=== PATIENT | female | born 1970 | race African-American/Black ===

== ENCOUNTER → 2018-06-02 | Outpatient (CLI) | payer MEDICARE, BC ==
[~2018-06-02] MED LIST: IOHEXOL 240 MG/ML 50ML VIAL. PO ONE
--- NOTE | 2018-06-02 14:02 | RAD ---
Examination: CT of the abdomen pelvis with oral contrast HISTORY: History of ventral hernia COMPARISON: None available TECHNIQUE: Axial CT images of the abdomen pelvis were performed with oral contrast. Coronal and sagittal reformats are performed Exposure: One or more of the following individualized dose reduction techniques were utilized for this examination: 1. Automated exposure control 2. Adjustment of the mA and/or kV according to patient size 3. Use of iterative reconstruction technique FINDINGS: Granulomas identified in the right lung base. No evidence of free air identified in the abdomen. The evaluation of the solid organs is limited due to lack of IV contrast. Cystic structure identified in the right lobe of the liver measuring 2 cm, difficult to characterize without contrast probably a cyst. Few calcified granulomas identified in the liver and spleen. Small subcentimeter cystic structures identified in the liver. The adrenal glands grossly appears unremarkable. The gallbladder is mildly distended. Small hiatal hernia. Prior surgical changes identified in the region of the stomach. The pancreas is mildly distended. The small bowel is nondilated. There is herniation of the small bowel loops in the right mid abdomen into the abdominal musculature however the external oblique muscle is intact. No evidence of bowel obstruction Atrophic changes of the [place] kidneys. Multiple cystic structures identified in the bilateral [place] kidneys likely cysts. There is a transplanted kidney identified in the left pelvic region. The appendix is normal. Feces and gas noted in the colon. Urinary bladder is mildly distended. Mild degenerative changes lumbar spine. IMPRESSION: 1. Mild herniation of the small bowel loops in the abdominal musculature in the right midabdomen however the external oblique muscle appears intact. No bowel obstruction. 2. Bilateral renal cysts with atrophic appearing [place] kidneys. Transplanted kidney identified in the left pelvic region 3. Cystic structures identified in the liver difficult to characterize probably cysts. Electronically signed by: Chele Quijano MD (06/02/2018 1:58 PM) [id number]
== END | disposition home or self-care (01) ==
LOC: CT 10:17
PROVIDERS: ATTEND Specialist
DX: K44.9 Diaphragmatic hernia without obstruction or gangrene (principal); K45.8 Other specified abdominal hernia without obstruction or gangrene; N28.1 Cyst of kidney, acquired; J84.10 Pulmonary fibrosis, unspecified; K82.8 Other specified diseases of gallbladder; N32.89 Other specified disorders of bladder; M47.896 Other spondylosis, lumbar region; Z94.0 Kidney transplant status
CPT/HCPCS: 74176

== ENCOUNTER 2018-09-01 08:24 | Inpatient (IN) | payer MEDICARE, BC ==
--- NOTE | 2018-08-31 11:48 | HP ---
ADMIT DATE: 09/01/2018 HISTORY OF PRESENT ILLNESS: The patient has had multiple surgeries as she is on dialysis, has had 2 surgeries, one of which she thinks may be related to the mass that she has in her abdomen at this point. She has this mass, which is painful and has been giving her trouble now for many months and she comes to me for treatment of the same. As stated before, she is on dialysis, has had a long history of renal failure. PAST MEDICAL HISTORY: Includes end-stage renal disease and she has had 2 kidney transplants, the left one is now, the right one in was taken out. Now she has one there that is functioning. Her creatinine stays around 2 or so. The other surgeries that she has had include a hysterectomy which she thinks was done vaginally. She has also had a gastric bypass surgery for obesity and has obviously had peritoneal dialysis catheters x 2 and has had an infection from that and has a shunt in the left arm. She otherwise has had normal childhood diseases. I think she is treated for hypertension, but does not have diabetes and is taking injection medicine now. She also is on 5 mg of prednisone by mouth per day. ALLERGIES: The patient has an allergy to PENICILLIN, but otherwise no other allergies. SOCIAL HISTORY: The patient has no children. Does not smoke, drink or use illicit drugs. FAMILY HISTORY: Noncontributory to the present illnesses. REVIEW OF SYSTEMS: Basically negative except for this periodic pain in the right abdomen where she feels a mass at times. It does go away sometimes when she lies down, but otherwise causes pain and discomfort. PHYSICAL EXAMINATION: GENERAL: Shows a slightly obese female in no acute distress. HEAD, EYES, EARS, NOSE AND THROAT: Grossly normal. CHEST: Clear bilaterally to auscultation. HEART: Unremarkable with a rate of 75 beats per minute, estimated and regular, but she did have about a 3/6 systolic murmur heard at the mitral area. ABDOMEN: Showed the scars of previous surgery and did have a mass when she stood up or increased intra-abdominal pressure mostly in the right abdomen at the umbilicus. It was fairly large. PELVIC: Not done. EXTREMITIES: Grossly normal. She did have the scars of previous surgery. IMPRESSION: 1. Ventral hernia. 2. End-stage renal disease. MEENAKSHI RANDALL MD DR: Maegan JOB#: [id number] / [id number] DOMO
[2018-09-01] VITALS (10 sets, daily range): BP systolic 118–164; BP diastolic 70–91
[~2018-09-01] VITALS: Ht 171.4 cm; Wt 86.2 kg
[~2018-09-01 08:24] MED LIST changes: +ALLO100T PO; +ASPI-630 PO; +CALC0.25 PO; +CALC300T5 PO; +CHOL500016 PO; +CLINDAMYCIN 900MG PREMIX 50 ML IV PRN; +DEXAMETHASONE SOD PHOS 20 MG/5 ML VIAL. ONE; +DIPH25CA58 PO; +FAMO20TA5 PO; +FAMOTIDINE 20 MG/2 ML VIAL ONE; +FURO80TA3 PO; +GABA300C18 PO; +HYDROmorphone 2 MG/ML VIAL IV PRN; -IOHEXOL 240 MG/ML 50ML VIAL. PO ONE; +IV RINGERS,LACTATED 1000ML 1,000 ML IV SCH; +LABE100T5 PO; +LEVO200T5 PO; +LIDOCAINE 1% PF 2 ML VIAL. ID PRN; +LIDOCAINE 1% PF 5 ML VIAL. ONE; +MELA3TAB2 PO; +MIDAZOLAM HCL/PF 2 MG/2 ML VIAL. ONE; +MORPHINE SULFATE 2 MG/ML VIAL. IV PRN; +MYCO180T PO; +ONDANSETRON PF 4 MG/2 ML VIAL. IV PRN; +PRED2.5T PO; +PROCHLORPERAZINE 10 MG/2 ML VIAL. IV PRN; +PROPOFOL 20 ML IV ONE; +ROCURONIUM 50 MG/5 ML VIAL. ONE; +TACR1CAP4 PO; +TERA2CAP3 PO; +TRAM50TA PO; +fentaNYL PF VIAL 250 MCG/5 ML VIAL ONE
--- NOTE | 2018-09-01 08:43 | PDOC ---
SURGICAL PROGRESS NOTE Subjective Pre operative note: No change in dictated H&P. MEENAKSHI RANDALL MD Sep 01, 2018 08:43
--- NOTE | 2018-09-01 08:43 | PDOC ---
SURGICAL PROGRESS NOTE Subjective Operative Note: Surgeon.................Hernandez Pre op dx...............ventral hernia post op dx..............ventral hernia anesthesia..............general Proceedure.............repair ventral hernia with mesh with lateral fasciotomies blood loss...............50cc drains.....................Large New drains x2 under the external oblique muscle fluids......................see anesthesia note condition................satisfactory MEENAKSHI RANDALL MD Sep 01, 2018 08:43
[2018-09-01] MEDS ORDERED: BUPIVAC MPF-EPI 0.5%-1:200000 30 ML VIAL. ONE (08:52)
[2018-09-01] MEDS ORDERED: PERICOLACE PO (08:56)
[2018-09-01] MEDS ORDERED: MIDAZOLAM HCL/PF 2 MG/2 ML VIAL. ONE (09:36)
[2018-09-01] MEDS ORDERED: ROPIVacaine 0.5% PF 20 ML VIAL. ONE (09:36)
[2018-09-01 10:02] LABS: BASO % 1 % (0-3); EOS # 0.2 x10^3/uL (0.0-0.7); EOS % 4 % (0-3); HEMATOCRIT 30.7 % (36.0-47.0); HEMOGLOBIN 9.4 g/dL (12.0-15.5); LYMPH # 1.1 x10^3/uL (1.0-4.8); LYMPH % 27 % (24-48); MEAN CORPUSCULAR HEMOGLOBIN 25 pg (25-35); MEAN CORPUSCULAR HGB CONC 31 g/dL (31-37); MEAN CORPUSCULAR VOLUME 82 fL (79-100); MONO # 0.3 x10^3/uL (0.0-1.1); MONO % 7 % (0-9); NEUT # 2.6 x10^3uL (1.8-7.7); NEUT % 62 % (31-73); PLATELET COUNT 205 x10^3/uL (140-400); RED BLOOD COUNT 3.75 x10^6/uL (3.50-5.40); RED CELL DISTRIBUTION WIDTH 18.2 % (11.5-14.5); WHITE BLOOD COUNT 4.1 x10^3/uL (4.0-11.0)
[2018-09-01 10:10] LABS: PROTHROMBIN TIME PATIENT 13.7 SEC (11.7-14.0)
[2018-09-01 10:12] LABS: CALCIUM 9.2 mg/dL (8.5-10.1); CREATININE 1.8 mg/dL (0.6-1.0); POTASSIUM 3.4 mmol/L (3.5-5.1)
[2018-09-01 10:18] LABS: ALBUMIN 3.7 g/dL (3.4-5.0); ALBUMIN/GLOBULIN RATIO 1.4 (1.0-1.7); TOTAL BILIRUBIN 0.5 mg/dL (0.2-1.0); TOTAL PROTEIN 6.3 g/dL (6.4-8.2)
[2018-09-01] MEDS: NORMAL SALINE 35 ML, fentaNYL PF VIAL 250 MCG, ROPIVacaine 0.5% PF 10 ML in EPIDURAL 50 TV EPID PRN ×3 (11:45→19:53)
[2018-09-01] MEDS ORDERED: ONDANSETRON PF 4 MG/2 ML VIAL. ONE (12:12)
[2018-09-01] MEDS ORDERED: NEOSTIGMINE 10 MG/10 ML VIAL. ONE (12:13)
[2018-09-01] MEDS ORDERED: GLYCOPYRROLATE 1 MG/5 ML VIAL. ONE (12:13)
[2018-09-01] MEDS ORDERED: ROCURONIUM 50 MG/5 ML VIAL. ONE (12:30)
[2018-09-01] MEDS ORDERED: CLINDAMYCIN 900MG PREMIX 50 ML IV ONE (12:30)
[2018-09-01] MEDS: IV 1/2 NORMAL SALINE 1,000 ML IV SCH ×2 (14:07→23:17)
[2018-09-01] MEDS ORDERED: ONDANSETRON PF 4 MG/2 ML VIAL. IV PRN (14:15)
[2018-09-01] MEDS ORDERED: 0.9 % SODIUM CHLORIDE 10 ML DISP.SYRIN. IV PRN (14:15)
[2018-09-01 15:01] LABS: CALCIUM 8.7 mg/dL (8.5-10.1); CREATININE 1.7 mg/dL (0.6-1.0); GFR 38.5; POTASSIUM 3.7 mmol/L (3.5-5.1)
[2018-09-01 15:06] LABS: ALBUMIN 3.4 g/dL (3.4-5.0); ALBUMIN/GLOBULIN RATIO 1.2 (1.0-1.7); TOTAL BILIRUBIN 0.4 mg/dL (0.2-1.0); TOTAL PROTEIN 6.2 g/dL (6.4-8.2)
--- NOTE | 2018-09-01 15:15 | NUR ---
Pt admitted from PACU via bed. A&O x3 very drowsy, c/o pain 06/24. IVF infusing. Abdominal dressing is CDI with binder in place. MILAGRO X2 on lower abd small amount of sanguineous drainage in both. NG connected to dependent drainage. Farah cath draining clear, yellow urine. Epidural infusing @ 12mL/hr. Completed admission assessment. Family at bedside. Call light within reach. Will continue to monitor.
[2018-09-01] MEDS: MYCOPHENOLATE ACID 180 MG TABLET.DR. PO SCH (21:24)
[2018-09-01] MEDS: TACROLIMUS 0.5 MG CAPSULE PO SCH (21:25)
[2018-09-01] MEDS: FAMOTIDINE 20 MG/2 ML VIAL IVP SCH (21:25)
--- NOTE | 2018-09-01 23:02 | OP ---
DATE OF SURGERY: SURGEON: Martín Randall MD PREOPERATIVE DIAGNOSIS: Large right abdominal ventral hernia. POSTOPERATIVE DIAGNOSIS: Large right abdominal ventral hernia. ANESTHESIA: General. PROCEDURE: Repair of right ventral hernia with mesh and lateral release of right external oblique muscle. TECHNIQUE: Under general anesthesia, the patient was properly prepped and draped in a routine fashion. She had been quite obese and had this mass in the right abdomen. It was midabdomen where the hernia was and it was unusual in that it did not really have a sac, but it was a protrusion through the muscles and only the external oblique aponeurosis was what was holding it in. She had had two kidney transplants and one kidney had been put in and removed on the right side. The technique was that under general anesthesia, the patient was properly prepped and draped in routine fashion. An incision was made in the right abdomen almost like a right paramedian incision. We had marked where the hernia was at that point and that done just prior to surgery. I went through the skin and pretty gingerly went into the subcutaneous making certain that we would enter the sac. It was as we thought beneath the external oblique aponeurosis muscle. As such, we divided it very gingerly and the peritoneum beneath that and got into the abdominal cavity. There was only fascia that was medial to this area and the lateral fascia had gone, it was very difficult to tell but it had gone quite far laterally and the hernia was only encapsulated by this external oblique aponeurosis muscle. It extended about 12 cm down and about 6 or 7 cm wide. We defined the area, divided some of the adhesions in the abdomen, which were relatively minimal having had the surgery that she has had before and made certain that during the procedure we did not injure any intra-abdominal contents. We were able to then define the margins of the hernia and as such made an incision going from the external oblique aponeurosis inferiorly and about a centimeter more to the medial side of the external oblique aponeurosis were it attached to the lateral muscles and just divided this so there would not be so much tension. We then used #1 suture to approximate the fascia medially that we could define clearly and laterally, which was quite far laterally, but with relaxation we were able to approximate this without much tension at all. We slowly did this in interrupted fashion so that we completely obliterated the hernia and approximated the muscles and fascia beneath the external oblique muscle. Having done this making certain not to injure any intra-abdominal contents, we placed the sutures. We then tied them as we placed Seprafilm in the abdomen, so that there would be less adhesions. Having done this, we then tied the suture as the Seprafilm laid flat on the contents of the abdomen and beneath the incision. We tied these with #1 Prolene suture and then divided. She had epidurally and we did not inject this with Marcaine. We then approximated the external oblique muscle and fibers taking the fascia with interrupted 0 Prolene suture. This was cut also. We then cleared off the anterior abdominal wall where the muscle was and going about 6 cm past the incision, we placed Phasix over this and sutured it in place using 2-0 Prolene. This laid flat on the anterior abdominal wall under the subcutaneous and on top of the muscle in the incision that we had made in the external oblique muscle. This was placed. We then placed two large New drains and then sutured the catheters in place using 2-0 silk. We then inspected the wound. We irrigated with copious amounts of saline and approximated in layers using 3-0 and 4-0 Vicryl the subcutaneous tissues. The skin was closed using a skin stapler. We then applied the appropriate apparatus to the drains with the bulbs in place and tied them with 0 silk sutures so that it cannot be removed. The bulbs were in place and the procedure was basically terminated as a sterile dressing was applied. The blood loss was probably not more than 25 to 30 mL. Fluids given can be obtained from the anesthesia sheet. The drains were the two large New drains and the condition of the patient was satisfactory as she is returned to the recovery room. MARTÍN RANDALL MD DR: MILO/margarita JOB#: [id number] / [id number] DOMO
--- NOTE | 2018-09-01 23:06 | NUR ---
1929 Patient comfortable in bed, requesting her anti-rejection medicines tonight, Dr Ng contacted and okayed to take with sip of water , pt informed. patient able tolerate taking 2 prograf caps only. at 0 pt complained of decrease sensation to right lower extremity, pt able to move all extremitues but stated her right leg feels different, ASTRO TECHNICIAN lead generation representative informed and came and assessed pt, no changes made in her epidural settings, will continue to monitor.
[2018-09-01] MEDS: CLINDAMYCIN 600MG PREMIX 50 ML IV SCH (23:15)
[2018-09-02] MEDS: NORMAL SALINE 35 ML, fentaNYL PF VIAL 250 MCG, ROPIVacaine 0.5% PF 10 ML in EPIDURAL 50 TV EPID PRN ×6 (00:03→20:30)
[2018-09-02 03:00] VITALS: BP 180/82
[2018-09-02 04:06] LABS: ALBUMIN 3.4 g/dL (3.4-5.0); ALBUMIN/GLOBULIN RATIO 1.4 (1.0-1.7); CALCIUM 8.6 mg/dL (8.5-10.1); CREATININE 1.7 mg/dL (0.6-1.0); GFR 38.5; POTASSIUM 4.2 mmol/L (3.5-5.1); TOTAL BILIRUBIN 0.5 mg/dL (0.2-1.0); TOTAL PROTEIN 5.8 g/dL (6.4-8.2)
[2018-09-02 05:10] LABS: BASO # 0.1 x10^3/uL (0.0-0.2); BASO % 1 % (0-3); EOS % 0 % (0-3); HEMATOCRIT 27.9 % (36.0-47.0); HEMOGLOBIN 8.7 g/dL (12.0-15.5); LYMPH # 1.2 x10^3/uL (1.0-4.8); LYMPH % 11 % (24-48); MEAN CORPUSCULAR HEMOGLOBIN 26 pg (25-35); MEAN CORPUSCULAR HGB CONC 31 g/dL (31-37); MEAN CORPUSCULAR VOLUME 81 fL (79-100); MONO # 0.6 x10^3/uL (0.0-1.1); MONO % 6 % (0-9); NEUT # 8.6 x10^3uL (1.8-7.7); NEUT % 83 % (31-73); PLATELET COUNT 189 x10^3/uL (140-400); RED BLOOD COUNT 3.43 x10^6/uL (3.50-5.40); RED CELL DISTRIBUTION WIDTH 18.3 % (11.5-14.5); WHITE BLOOD COUNT 10.4 x10^3/uL (4.0-11.0)
[2018-09-02] MEDS: CLINDAMYCIN 600MG PREMIX 50 ML IV SCH ×3 (06:01→21:39)
[2018-09-02 07:00] VITALS: BP 196/82
--- NOTE | 2018-09-02 07:36 | PDOC ---
SURGICAL PROGRESS NOTE Subjective POD#1 Alert and doing well with little pain. Will get out of bed and ambulate today. Will remove MG and parikh. Lab noted and creatinine stable at 1.7. Will continue to support and await Gi function...likely 2-3 days. WIll defer Meds to Dr. Navas and see if he feels nephrology should see patient. Binder made loose and will leave drains in likely for 7-10 days. Vital Signs Vital Signs Date Time Temp Pulse Resp B/P (MAP) Pulse Ox O2 Delivery O2 Flow Rate FiO2 09/02/18 04:20 20 97 Nasal Cannula 2.0 09/02/18 03:00 97.9 81 180/82 (114) 97.9 I&O Intake and Output 09/02/18 07:00 Intake Total 1200 ml Output Total 800 ml Balance 400 ml Intake Oral 0 ml IV Total 1200 ml Output Urine Total 585 ml Drainage Total 115 ml Estimated Blood Loss 100 ml Labs Laboratory Tests Test 09/01/18 09:00 09/01/18 14:45 09/02/18 03:15 09/02/18 05:00 White Blood Count 4.1 x10^3/uL (4.0-11.0) 10.4 x10^3/uL (4.0-11.0) Red Blood Count 3.75 x10^6/uL (3.50-5.40) 3.43 x10^6/uL (3.50-5.40) Hemoglobin 9.4 g/dL (12.0-15.5) 8.7 g/dL (12.0-15.5) Hematocrit 30.7 % (36.0-47.0) 27.9 % (36.0-47.0) Mean Corpuscular Volume 82 fL (79-100) 81 fL (79-100) Mean Corpuscular Hemoglobin 25 pg (25-35) 26 pg (25-35) Mean Corpuscular Hemoglobin Concent 31 g/dL (31-37) 31 g/dL (31-37) Red Cell Distribution Width 18.2 % (11.5-14.5) 18.3 % (11.5-14.5) Platelet Count 205 x10^3/uL (140-400) 189 x10^3/uL (140-400) Neutrophils (%) (Auto) 62 % (31-73) 83 % (31-73) Lymphocytes (%) (Auto) 27 % (24-48) 11 % (24-48) Monocytes (%) (Auto) 7 % (0-9) 6 % (0-9) Eosinophils (%) (Auto) 4 % (0-3) 0 % (0-3) Basophils (%) (Auto) 1 % (0-3) 1 % (0-3) Neutrophils # (Auto) 2.6 x10^3uL (1.8-7.7) 8.6 x10^3uL (1.8-7.7) Lymphocytes # (Auto) 1.1 x10^3/uL (1.0-4.8) 1.2 x10^3/uL (1.0-4.8) Monocytes # (Auto) 0.3 x10^3/uL (0.0-1.1) 0.6 x10^3/uL (0.0-1.1) Eosinophils # (Auto) 0.2 x10^3/uL (0.0-0.7) 0.0 x10^3/uL (0.0-0.7) Basophils # (Auto) 0.0 x10^3/uL (0.0-0.2) 0.1 x10^3/uL (0.0-0.2) Prothrombin Time 13.7 SEC (11.7-14.0) Prothromb Time International Ratio 1.1 (0.8-1.1) Sodium Level 146 mmol/L (136-145) 144 mmol/L (136-145) 142 mmol/L (136-145) Potassium Level 3.4 mmol/L (3.5-5.1) 3.7 mmol/L (3.5-5.1) 4.2 mmol/L (3.5-5.1) Chloride Level 107 mmol/L (98-107) 107 mmol/L (98-107) 106 mmol/L (98-107) Carbon Dioxide Level 26 mmol/L (21-32) 27 mmol/L (21-32) 22 mmol/L (21-32) Anion Gap 13 (6-14) 10 (6-14) 14 (6-14) Blood Urea Nitrogen 16 mg/dL (7-20) 14 mg/dL (7-20) 15 mg/dL (7-20) Creatinine 1.8 mg/dL (0.6-1.0) 1.7 mg/dL (0.6-1.0) 1.7 mg/dL (0.6-1.0) Estimated GFR (Cockcroft-Gault) 36.0 38.5 38.5 BUN/Creatinine Ratio 9 (6-20) 8 (6-20) 9 (6-20) Glucose Level 88 mg/dL (70-99) 117 mg/dL (70-99) 93 mg/dL (70-99) Calcium Level 9.2 mg/dL (8.5-10.1) 8.7 mg/dL (8.5-10.1) 8.6 mg/dL (8.5-10.1) Total Bilirubin 0.5 mg/dL (0.2-1.0) 0.4 mg/dL (0.2-1.0) 0.5 mg/dL (0.2-1.0) Aspartate Amino Transf (AST/SGOT) 12 U/L (15-37) 9 U/L (15-37) 16 U/L (15-37) Alanine Aminotransferase (ALT/SGPT) 14 U/L (14-59) 14 U/L (14-59) 15 U/L (14-59) Alkaline Phosphatase 29 U/L (46-116) 28 U/L (46-116) 29 U/L (46-116) Total Protein 6.3 g/dL (6.4-8.2) 6.2 g/dL (6.4-8.2) 5.8 g/dL (6.4-8.2) Albumin 3.7 g/dL (3.4-5.0) 3.4 g/dL (3.4-5.0) 3.4 g/dL (3.4-5.0) Albumin/Globulin Ratio 1.4 (1.0-1.7) 1.2 (1.0-1.7) 1.4 (1.0-1.7) Laboratory Tests Test 09/01/18 09:00 09/01/18 14:45 09/02/18 03:15 3/21/19 05:00 White Blood Count 4.1 x10^3/uL (4.0-11.0) 10.4 x10^3/uL (4.0-11.0) Red Blood Count 3.75 x10^6/uL (3.50-5.40) 3.43 x10^6/uL (3.50-5.40) Hemoglobin 9.4 g/dL (12.0-15.5) 8.7 g/dL (12.0-15.5) Hematocrit 30.7 % (36.0-47.0) 27.9 % (36.0-47.0) Mean Corpuscular Volume 82 fL (79-100) 81 fL (79-100) Mean Corpuscular Hemoglobin 25 pg (25-35) 26 pg (25-35) Mean Corpuscular Hemoglobin Concent 31 g/dL (31-37) 31 g/dL (31-37) Red Cell Distribution Width 18.2 % (11.5-14.5) 18.3 % (11.5-14.5) Platelet Count 205 x10^3/uL (140-400) 189 x10^3/uL (140-400) Neutrophils (%) (Auto) 62 % (31-73) 83 % (31-73) Lymphocytes (%) (Auto) 27 % (24-48) 11 % (24-48) Monocytes (%) (Auto) 7 % (0-9) 6 % (0-9) Eosinophils (%) (Auto) 4 % (0-3) 0 % (0-3) Basophils (%) (Auto) 1 % (0-3) 1 % (0-3) Neutrophils # (Auto) 2.6 x10^3uL (1.8-7.7) 8.6 x10^3uL (1.8-7.7) Lymphocytes # (Auto) 1.1 x10^3/uL (1.0-4.8) 1.2 x10^3/uL (1.0-4.8) Monocytes # (Auto) 0.3 x10^3/uL (0.0-1.1) 0.6 x10^3/uL (0.0-1.1) Eosinophils # (Auto) 0.2 x10^3/uL (0.0-0.7) 0.0 x10^3/uL (0.0-0.7) Basophils # (Auto) 0.0 x10^3/uL (0.0-0.2) 0.1 x10^3/uL (0.0-0.2) Prothrombin Time 13.7 SEC (11.7-14.0) Prothromb Time International Ratio 1.1 (0.8-1.1) Sodium Level 146 mmol/L (136-145) 144 mmol/L (136-145) 142 mmol/L (136-145) Potassium Level 3.4 mmol/L (3.5-5.1) 3.7 mmol/L (3.5-5.1) 4.2 mmol/L (3.5-5.1) Chloride Level 107 mmol/L (98-107) 107 mmol/L (98-107) 106 mmol/L (98-107) Carbon Dioxide Level 26 mmol/L (21-32) 27 mmol/L (21-32) 22 mmol/L (21-32) Anion Gap 13 (6-14) 10 (6-14) 14 (6-14) Blood Urea Nitrogen 16 mg/dL (7-20) 14 mg/dL (7-20) 15 mg/dL (7-20) Creatinine 1.8 mg/dL (0.6-1.0) 1.7 mg/dL (0.6-1.0) 1.7 mg/dL (0.6-1.0) Estimated GFR (Cockcroft-Gault) 36.0 38.5 38.5 BUN/Creatinine Ratio 9 (6-20) 8 (6-20) 9 (6-20) Glucose Level 88 mg/dL (70-99) 117 mg/dL (70-99) 93 mg/dL (70-99) Calcium Level 9.2 mg/dL (8.5-10.1) 8.7 mg/dL (8.5-10.1) 8.6 mg/dL (8.5-10.1) Total Bilirubin 0.5 mg/dL (0.2-1.0) 0.4 mg/dL (0.2-1.0) 0.5 mg/dL (0.2-1.0) Aspartate Amino Transf (AST/SGOT) 12 U/L (15-37) 9 U/L (15-37) 16 U/L (15-37) Alanine Aminotransferase (ALT/SGPT) 14 U/L (14-59) 14 U/L (14-59) 15 U/L (14-59) Alkaline Phosphatase 29 U/L (46-116) 28 U/L (46-116) 29 U/L (46-116) Total Protein 6.3 g/dL (6.4-8.2) 6.2 g/dL (6.4-8.2) 5.8 g/dL (6.4-8.2) Albumin 3.7 g/dL (3.4-5.0) 3.4 g/dL (3.4-5.0) 3.4 g/dL (3.4-5.0) Albumin/Globulin Ratio 1.4 (1.0-1.7) 1.2 (1.0-1.7) 1.4 (1.0-1.7) MEENAKSHI RANDALL MD Sep 02, 2018 07:36
[2018-09-02] MEDS: FAMOTIDINE 20 MG/2 ML VIAL IVP SCH (10:01)
[2018-09-02] MEDS: MYCOPHENOLATE ACID 180 MG TABLET.DR. PO SCH ×2 (10:02→20:41)
[2018-09-02] MEDS: TACROLIMUS 0.5 MG CAPSULE PO SCH ×2 (10:02→20:37)
[2018-09-02] MEDS: predniSONE 5 MG TABLET PO SCH (10:02)
[2018-09-02] MEDS: ALLOPURINOL 100 MG TABLET. PO SCH (10:02)
[2018-09-02] MEDS: IV 1/2 NORMAL SALINE 1,000 ML IV SCH ×2 (10:14→20:24)
[2018-09-02] MEDS ORDERED: METOPROLOL TARTRATE 5 MG/5 ML VIAL. IVP SCH (10:15)
[2018-09-02 10:58] VITALS: BP 176/60
[2018-09-02] MEDS: FAMOTIDINE 20 MG TABLET. PO SCH (11:00)
[2018-09-02] MEDS ORDERED: TERAZOSIN 1 MG CAPSULE. PO SCH ×2 (11:00→21:00)
[2018-09-02] MEDS ORDERED: CALCIUM CARBONATE 500 MG TAB.CHEW PO SCH (11:00)
--- NOTE | 2018-09-02 11:00 | PDOC ---
Provider Note Provider Note Consultation dictated. Thank you Dr. Ng. Number [phone] ERIC TRINH MD Sep 02, 2018 11:00
--- NOTE | 2018-09-02 12:00 | CONS ---
DATE OF CONSULTATION: 09/01/2018 CONSULTING PHYSICIAN: Martín Ng MD. HISTORY OF PRESENT ILLNESS: This is a 48-year-old female who has had multiple abdominal surgeries in the past, has had ventral hernia and was admitted by Dr. Ng for ventral hernia repair. The patient also has a history of hypertension, renal transplant and multiple medical issues and a medical consultation has been obtained for management of the hypertension and other medical conditions. SYSTEMS REVIEW: At present time, the patient denies any chest pains, dyspnea, dizziness, heartburn, nausea, back pain, cold, cough, congestion. She does have some abdominal pain where she had surgeries. She denies any headaches. She does complain of some numbness of the right lower extremity after she had epidural yesterday. She denies any weakness or numbness in the left lower extremity and the right lower extremity. Her foot is fine and is not numb. Other systems reviewed and are negative. ALLERGIES: THE PATIENT IS ALLERGIC TO PENICILLIN. MEDICATIONS: Reviewed and reconciled. PAST MEDICAL HISTORY: The patient has a history of end-stage renal disease and had two kidney transplants, right kidney transplant was taken out. The patient has left kidney transplant that is functioning. She has a history of dialysis in the past. She has hypothyroidism, gastroesophageal reflux disease, chronic kidney disease stage 3 and hypertension. PAST SURGICAL HISTORY: The patient has had two kidney transplants, right one was taken out. She still has the left one and is functioning, has had hysterectomy, likely vaginally. She had gastric bypass surgery for obesity and has had peritoneal dialysis catheter as well as shunt in the left arm previously. After the weight loss surgery that was done last 09/22/2017, she has lost 137 pounds. FAMILY HISTORY: There is history of diabetes and hypertension in the family. SOCIAL HISTORY: No history of smoking, alcoholism or drug abuse. PHYSICAL EXAMINATION: VITAL SIGNS: Temperature 97.9, respirations 18 per minute, pulse 85 per minute, temperature 98 degrees, and blood pressure 196/82 mmHg. GENERAL: The patient is alert, oriented, not in any acute distress. HEENT: Pupils reacting to light. Conjunctivae pink. Sclerae white. HEENT: Unremarkable. NECK: Supple. JVP normal. No thyromegaly. The patient has had thyroidectomy previously. LUNGS: Decreased breath sounds at bases. CARDIOVASCULAR SYSTEM: S1, S2 regular. ABDOMEN: Soft. The patient had ventral hernia repair on the right side. Bowel sounds present, no distention. EXTREMITIES: No edema, no cyanosis, no calf tenderness. CENTRAL NERVOUS SYSTEM: Alert and oriented. LABORATORY FINDINGS: WBC count 4.1 yesterday, 10.4 today; hemoglobin 9.4; platelet count 205,000. Sodium 146 and potassium was 3.4, subsequently was 144 and potassium 3.7; BUN 14; creatinine 1.7, today creatinine is 1.7; glucose 117; total protein 6.2; albumin 3.4. INR is 1.1. IMPRESSION: 1. Accelerated hypertension. 2. Hypothyroidism. 3. Gastroesophageal reflux disease. 4. Chronic kidney disease stage 3, status post renal transplant. 5. Status post ventral hernia repair yesterday. PLAN: 1. I will resume home medications. Previously had ordered metoprolol 5 mg IV q.6h. I will discontinue that. Recheck labs in a.m. Clinically, the patient is in stable condition. Treatment discussed with the patient and the family. The patient is currently n.p.o. except that she can take her medications. 2. Continue to monitor the patient's blood pressure. Resume Synthroid and other medications. Dr. Ng thank you very much for letting me to participate in this patient's care. I will follow her with you tomorrow and as needed. For details, please refer to the orders. ERIC TRINH MD DR: ZINA/margarita JOB#: [id number] / [id number] MARTÍN Cooper MD
--- NOTE | 2018-09-02 12:41 | NUR ---
SW following. Discussed with RN, pt had surgery yesterday. RN advised no SW needs at this time. SW will continue to follow for any discharge planning needs.
[2018-09-02] MEDS: LABETALOL HCL 100 MG TABLET. PO SCH (13:29)
[2018-09-02] MEDS: LEVOTHYROXINE 100 MCG TABLET PO SCH (13:31)
[2018-09-02] MEDS: CHOLECALCIFEROL (VITAMIN D3) 1,000 UNIT TABLET PO SCH (13:31)
[2018-09-02 15:00] VITALS: BP 148/63
[2018-09-02 19:00] VITALS: BP 154/53
[2018-09-02] MEDS: TERAZOSIN 1 MG CAPSULE. PO SCH (20:37)
[2018-09-02] MEDS: CALCIUM CARBONATE 500 MG TAB.CHEW PO SCH (20:39)
[2018-09-02] MEDS: GABAPENTIN 300 MG CAPSULE. PO SCH ×2 (20:40→20:47)
[2018-09-02] MEDS ORDERED: TERAZOSIN 5 MG CAPSULE. PO SCH (21:00)
--- NOTE | 2018-09-02 22:05 | NUR ---
Patient tried to urinate after parikh was removed and was unsuccessful. Patient was bladder scanned and it showed 64cc of urine at that time. RN will continue to monitor closely.
[2018-09-02 23:00] VITALS: BP 150/46
[2018-09-03] MEDS: NORMAL SALINE 35 ML, fentaNYL PF VIAL 250 MCG, ROPIVacaine 0.5% PF 10 ML in EPIDURAL 50 TV EPID PRN ×5 (00:29→19:25)
[2018-09-03 03:00] VITALS: BP 138/44
[2018-09-03] MEDS: LEVOTHYROXINE 100 MCG TABLET PO SCH (05:45)
[2018-09-03] MEDS: CLINDAMYCIN 600MG PREMIX 50 ML IV SCH (05:45)
[2018-09-03] MEDS: IV 1/2 NORMAL SALINE 1,000 ML IV SCH ×3 (06:41→21:17)
[2018-09-03] MEDS: TERAZOSIN 1 MG CAPSULE. PO SCH ×2 (06:42→21:14)
[2018-09-03 07:00] VITALS: BP 147/46
--- NOTE | 2018-09-03 07:34 | PDOC ---
SURGICAL PROGRESS NOTE Subjective POD#2 Continues to d well and wound without complications. Has BS but no flatus yet. Will start clear liquids cautiosly and continue to ambulate. Will start heparin as I contacted anesthsia and they agree. Await GI function and today's lab as it is not back yet Not other changes in RX at this time.. Vital Signs Vital Signs Date Time Temp Pulse Resp B/P (MAP) Pulse Ox O2 Delivery O2 Flow Rate FiO2 09/03/18 06:42 72 159/69 09/03/18 04:33 Room Air 09/03/18 03:00 98.8 18 95 98.8 I&O Intake and Output 09/03/18 06:59 Intake Total 0 ml Output Total 400 ml Balance -400 ml Intake Oral 0 ml Output Urine Total 300 ml Drainage Total 100 ml Labs Laboratory Tests Test 09/01/18 09:00 09/01/18 14:45 09/02/18 03:15 09/02/18 05:00 White Blood Count 4.1 x10^3/uL (4.0-11.0) 10.4 x10^3/uL (4.0-11.0) Red Blood Count 3.75 x10^6/uL (3.50-5.40) 3.43 x10^6/uL (3.50-5.40) Hemoglobin 9.4 g/dL (12.0-15.5) 8.7 g/dL (12.0-15.5) Hematocrit 30.7 % (36.0-47.0) 27.9 % (36.0-47.0) Mean Corpuscular Volume 82 fL (79-100) 81 fL (79-100) Mean Corpuscular Hemoglobin 25 pg (25-35) 26 pg (25-35) Mean Corpuscular Hemoglobin Concent 31 g/dL (31-37) 31 g/dL (31-37) Red Cell Distribution Width 18.2 % (11.5-14.5) 18.3 % (11.5-14.5) Platelet Count 205 x10^3/uL (140-400) 189 x10^3/uL (140-400) Neutrophils (%) (Auto) 62 % (31-73) 83 % (31-73) Lymphocytes (%) (Auto) 27 % (24-48) 11 % (24-48) Monocytes (%) (Auto) 7 % (0-9) 6 % (0-9) Eosinophils (%) (Auto) 4 % (0-3) 0 % (0-3) Basophils (%) (Auto) 1 % (0-3) 1 % (0-3) Neutrophils # (Auto) 2.6 x10^3uL (1.8-7.7) 8.6 x10^3uL (1.8-7.7) Lymphocytes # (Auto) 1.1 x10^3/uL (1.0-4.8) 1.2 x10^3/uL (1.0-4.8) Monocytes # (Auto) 0.3 x10^3/uL (0.0-1.1) 0.6 x10^3/uL (0.0-1.1) Eosinophils # (Auto) 0.2 x10^3/uL (0.0-0.7) 0.0 x10^3/uL (0.0-0.7) Basophils # (Auto) 0.0 x10^3/uL (0.0-0.2) 0.1 x10^3/uL (0.0-0.2) Prothrombin Time 13.7 SEC (11.7-14.0) Prothromb Time International Ratio 1.1 (0.8-1.1) Sodium Level 146 mmol/L (136-145) 144 mmol/L (136-145) 142 mmol/L (136-145) Potassium Level 3.4 mmol/L (3.5-5.1) 3.7 mmol/L (3.5-5.1) 4.2 mmol/L (3.5-5.1) Chloride Level 107 mmol/L (98-107) 107 mmol/L (98-107) 106 mmol/L (98-107) Carbon Dioxide Level 26 mmol/L (21-32) 27 mmol/L (21-32) 22 mmol/L (21-32) Anion Gap 13 (6-14) 10 (6-14) 14 (6-14) Blood Urea Nitrogen 16 mg/dL (7-20) 14 mg/dL (7-20) 15 mg/dL (7-20) Creatinine 1.8 mg/dL (0.6-1.0) 1.7 mg/dL (0.6-1.0) 1.7 mg/dL (0.6-1.0) Estimated GFR (Cockcroft-Gault) 36.0 38.5 38.5 BUN/Creatinine Ratio 9 (6-20) 8 (6-20) 9 (6-20) Glucose Level 88 mg/dL (70-99) 117 mg/dL (70-99) 93 mg/dL (70-99) Calcium Level 9.2 mg/dL (8.5-10.1) 8.7 mg/dL (8.5-10.1) 8.6 mg/dL (8.5-10.1) Total Bilirubin 0.5 mg/dL (0.2-1.0) 0.4 mg/dL (0.2-1.0) 0.5 mg/dL (0.2-1.0) Aspartate Amino Transf (AST/SGOT) 12 U/L (15-37) 9 U/L (15-37) 16 U/L (15-37) Alanine Aminotransferase (ALT/SGPT) 14 U/L (14-59) 14 U/L (14-59) 15 U/L (14-59) Alkaline Phosphatase 29 U/L (46-116) 28 U/L (46-116) 29 U/L (46-116) Total Protein 6.3 g/dL (6.4-8.2) 6.2 g/dL (6.4-8.2) 5.8 g/dL (6.4-8.2) Albumin 3.7 g/dL (3.4-5.0) 3.4 g/dL (3.4-5.0) 3.4 g/dL (3.4-5.0) Albumin/Globulin Ratio 1.4 (1.0-1.7) 1.2 (1.0-1.7) 1.4 (1.0-1.7) MEENAKSHI RANDALL MD Sep 03, 2018 07:34
[2018-09-03 07:48] LABS: BASO % 1 % (0-3); EOS # 0.1 x10^3/uL (0.0-0.7); EOS % 1 % (0-3); HEMATOCRIT 27.6 % (36.0-47.0); HEMOGLOBIN 8.7 g/dL (12.0-15.5); LYMPH # 1.2 x10^3/uL (1.0-4.8); LYMPH % 20 % (24-48); MEAN CORPUSCULAR HEMOGLOBIN 26 pg (25-35); MEAN CORPUSCULAR HGB CONC 31 g/dL (31-37); MEAN CORPUSCULAR VOLUME 82 fL (79-100); MONO # 0.4 x10^3/uL (0.0-1.1); MONO % 6 % (0-9); NEUT # 4.2 x10^3uL (1.8-7.7); NEUT % 72 % (31-73); PLATELET COUNT 180 x10^3/uL (140-400); RED BLOOD COUNT 3.38 x10^6/uL (3.50-5.40); RED CELL DISTRIBUTION WIDTH 18.1 % (11.5-14.5); WHITE BLOOD COUNT 5.9 x10^3/uL (4.0-11.0)
[2018-09-03 08:02] LABS: CALCIUM 8.3 mg/dL (8.5-10.1); CREATININE 1.7 mg/dL (0.6-1.0); GFR 38.5; POTASSIUM 3.5 mmol/L (3.5-5.1)
[2018-09-03] MEDS: TACROLIMUS 0.5 MG CAPSULE PO SCH ×2 (08:08→21:15)
[2018-09-03] MEDS: CHOLECALCIFEROL (VITAMIN D3) 1,000 UNIT TABLET PO SCH (08:08)
[2018-09-03] MEDS: SERTRALINE 50 MG TABLET. PO SCH (08:09)
[2018-09-03] MEDS: ALLOPURINOL 100 MG TABLET. PO SCH (08:09)
[2018-09-03] MEDS: predniSONE 5 MG TABLET PO SCH (08:09)
[2018-09-03] MEDS: MYCOPHENOLATE ACID 180 MG TABLET.DR. PO SCH ×2 (08:09→21:16)
[2018-09-03] MEDS: FAMOTIDINE 20 MG TABLET. PO SCH (08:09)
[2018-09-03] MEDS: ASPIRIN CHEWABLE 81 MG TABLET. PO SCH (08:09)
[2018-09-03] MEDS: LABETALOL HCL 100 MG TABLET. PO SCH (08:15)
[2018-09-03 08:53] LABS: PLT ESTIMATE ADEQUATE (ADEQUATE)
[2018-09-03 08:54] LABS: ANISOCYTOSIS PRESENT; BIZZARE CELLS PRESENT; OVALOCYTES PRESENT; POIKILOCYTOSIS PRESENT
--- NOTE | 2018-09-03 10:26 | PDOC ---
IM PROGRESS NOTES- Subjective Subjective No complaints of pain, dyspnea or dizziness. Objective Vitals Vital Signs Date Time Temp Pulse Resp B/P (MAP) Pulse Ox O2 Delivery O2 Flow Rate FiO2 09/03/18 08:15 72 147/76 09/03/18 08:14 Room Air 09/03/18 07:00 98.1 16 98 98.1 Input & Output Intake and Output 09/03/18 06:59 Intake Total 0 ml Output Total 400 ml Balance -400 ml Intake Oral 0 ml Output Urine Total 300 ml Drainage Total 100 ml Physical Exam Physical Exam General appearance - alert,well appearing, and in no distress and oriented to person, place, and time Mental Status - alert, oriented to person, place, and time, affect appropriate to mood Head - normal Chest -decreased breath sounds at bases Heart - S1 and S2 normal Abdomen - soft, status post surgery. Dressing in place. Neurological - alert and oriented bowel sounds improving. Musculoskeletal - no muscular tenderness noted Extremities - no pedal edema Skin - warm and dry Labs Laboratory Tests Test 09/01/18 14:45 09/02/18 03:15 09/02/18 05:00 09/03/18 06:47 Sodium Level 144 mmol/L (136-145) 142 mmol/L (136-145) 138 mmol/L (136-145) Potassium Level 3.7 mmol/L (3.5-5.1) 4.2 mmol/L (3.5-5.1) 3.5 mmol/L (3.5-5.1) Chloride Level 107 mmol/L (98-107) 106 mmol/L (98-107) 103 mmol/L (98-107) Carbon Dioxide Level 27 mmol/L (21-32) 22 mmol/L (21-32) 25 mmol/L (21-32) Anion Gap 10 (6-14) 14 (6-14) 10 (6-14) Blood Urea Nitrogen 14 mg/dL (7-20) 15 mg/dL (7-20) 15 mg/dL (7-20) Creatinine 1.7 mg/dL (0.6-1.0) 1.7 mg/dL (0.6-1.0) 1.7 mg/dL (0.6-1.0) Estimated GFR (Cockcroft-Gault) 38.5 38.5 38.5 BUN/Creatinine Ratio 8 (6-20) 9 (6-20) Glucose Level 117 mg/dL (70-99) 93 mg/dL (70-99) 90 mg/dL (70-99) Calcium Level 8.7 mg/dL (8.5-10.1) 8.6 mg/dL (8.5-10.1) 8.3 mg/dL (8.5-10.1) Total Bilirubin 0.4 mg/dL (0.2-1.0) 0.5 mg/dL (0.2-1.0) Aspartate Amino Transf (AST/SGOT) 9 U/L (15-37) 16 U/L (15-37) Alanine Aminotransferase (ALT/SGPT) 14 U/L (14-59) 15 U/L (14-59) Alkaline Phosphatase 28 U/L (46-116) 29 U/L (46-116) Total Protein 6.2 g/dL (6.4-8.2) 5.8 g/dL (6.4-8.2) Albumin 3.4 g/dL (3.4-5.0) 3.4 g/dL (3.4-5.0) Albumin/Globulin Ratio 1.2 (1.0-1.7) 1.4 (1.0-1.7) White Blood Count 10.4 x10^3/uL (4.0-11.0) 5.9 x10^3/uL (4.0-11.0) Red Blood Count 3.43 x10^6/uL (3.50-5.40) 3.38 x10^6/uL (3.50-5.40) Hemoglobin 8.7 g/dL (12.0-15.5) 8.7 g/dL (12.0-15.5) Hematocrit 27.9 % (36.0-47.0) 27.6 % (36.0-47.0) Mean Corpuscular Volume 81 fL (79-100) 82 fL (79-100) Mean Corpuscular Hemoglobin 26 pg (25-35) 26 pg (25-35) Mean Corpuscular Hemoglobin Concent 31 g/dL (31-37) 31 g/dL (31-37) Red Cell Distribution Width 18.3 % (11.5-14.5) 18.1 % (11.5-14.5) Platelet Count 189 x10^3/uL (140-400) 180 x10^3/uL (140-400) Neutrophils (%) (Auto) 83 % (31-73) 72 % (31-73) Lymphocytes (%) (Auto) 11 % (24-48) 20 % (24-48) Monocytes (%) (Auto) 6 % (0-9) 6 % (0-9) Eosinophils (%) (Auto) 0 % (0-3) 1 % (0-3) Basophils (%) (Auto) 1 % (0-3) 1 % (0-3) Neutrophils # (Auto) 8.6 x10^3uL (1.8-7.7) 4.2 x10^3uL (1.8-7.7) Lymphocytes # (Auto) 1.2 x10^3/uL (1.0-4.8) 1.2 x10^3/uL (1.0-4.8) Monocytes # (Auto) 0.6 x10^3/uL (0.0-1.1) 0.4 x10^3/uL (0.0-1.1) Eosinophils # (Auto) 0.0 x10^3/uL (0.0-0.7) 0.1 x10^3/uL (0.0-0.7) Basophils # (Auto) 0.1 x10^3/uL (0.0-0.2) 0.0 x10^3/uL (0.0-0.2) Platelet Estimate Adequate (ADEQUATE) Poikilocytosis Present Anisocytosis Present Macrocytosis Present Ovalocytes Present RBC Morphology Bizarre Forms Present Laboratory Tests Test 09/03/18 06:47 White Blood Count 5.9 x10^3/uL (4.0-11.0) Red Blood Count 3.38 x10^6/uL (3.50-5.40) Hemoglobin 8.7 g/dL (12.0-15.5) Hematocrit 27.6 % (36.0-47.0) Mean Corpuscular Volume 82 fL (79-100) Mean Corpuscular Hemoglobin 26 pg (25-35) Mean Corpuscular Hemoglobin Concent 31 g/dL (31-37) Red Cell Distribution Width 18.1 % (11.5-14.5) Platelet Count 180 x10^3/uL (140-400) Neutrophils (%) (Auto) 72 % (31-73) Lymphocytes (%) (Auto) 20 % (24-48) Monocytes (%) (Auto) 6 % (0-9) Eosinophils (%) (Auto) 1 % (0-3) Basophils (%) (Auto) 1 % (0-3) Neutrophils # (Auto) 4.2 x10^3uL (1.8-7.7) Lymphocytes # (Auto) 1.2 x10^3/uL (1.0-4.8) Monocytes # (Auto) 0.4 x10^3/uL (0.0-1.1) Eosinophils # (Auto) 0.1 x10^3/uL (0.0-0.7) Basophils # (Auto) 0.0 x10^3/uL (0.0-0.2) Platelet Estimate Adequate (ADEQUATE) Poikilocytosis Present Anisocytosis Present Macrocytosis Present Ovalocytes Present RBC Morphology Bizarre Forms Present Sodium Level 138 mmol/L (136-145) Potassium Level 3.5 mmol/L (3.5-5.1) Chloride Level 103 mmol/L (98-107) Carbon Dioxide Level 25 mmol/L (21-32) Anion Gap 10 (6-14) Blood Urea Nitrogen 15 mg/dL (7-20) Creatinine 1.7 mg/dL (0.6-1.0) Estimated GFR (Cockcroft-Gault) 38.5 Glucose Level 90 mg/dL (70-99) Calcium Level 8.3 mg/dL (8.5-10.1) Meds Current Medications Aspirin (Children'S Aspirin) 81 mg DAILY PO Last administered on 09/03/18at 08: 09; Start 09/03/18 at 09:00 Calcitriol (Rocaltrol) 0.5 mcg QSA@0900 PO ; Start 09/04/18 at 09:00; Status Cancel Calcium Carbonate/ Glycine (Tums) 1,000 mg DAILY PO ; Start 09/02/18 at 11:00; Stop 09/02/18 at 13:54; Status DC Calcium Carbonate/ Glycine (Tums) 1,000 mg QHS PO Last administered on 20:39; Start 09/02/18 at 21:00 Famotidine (Pepcid) 20 mg DAILY PO Last administered on 09/03/18 08:09; Start 09/02/18 at 11:00 Gabapentin (Neurontin) 300 mg QHS PO ; Start 09/02/18 at 21:00 Heparin Sodium (Porcine) (Heparin Sodium) 5,000 unit Q12HR SQ ; Start 09/03/18 at 10:00 Labetalol HCl (Trandate) 100 mg DAILY PO Last administered on 09/03/18 08:15; Start 09/02/18 at 11:00 Levothyroxine Sodium (Synthroid) 200 mcg DAILY06 PO Last administered on 05:45; Start 09/02/18 at 11:00 Sertraline HCl (Zoloft) 50 mg DAILY PO Last administered on 09/03/18 08:09; Start 09/03/18 at 09:00 Terazosin HCl (Hytrin) 1 mg QHS PO ; Start 09/02/18 at 21:00; Status Cancel Terazosin HCl (Hytrin) 2 mg DAILY07 PO Last administered on 09/03/18 06:42; Start 09/03/18 at 07:00 Terazosin HCl (Hytrin) 3 mg QHS PO Last administered on 09/02/18at 20:37; Start 09/02/18 at 21:00 Terazosin HCl (Hytrin) 4 mg DAILY07 PO Last administered on 09/02/18at 13:30; Start 09/02/18 at 11:00; Stop 09/02/18 at 13:54; Status DC Terazosin HCl (Hytrin) 5 mg QHS PO ; Start 09/02/18 at 21:00; Status Cancel Vitamin D (Vitamin D3) 1,000 unit DAILY PO Last administered on 09/03/18 08:08 ; Start 09/02/18 at 11:00 Assessment Assessment 1. Accelerated hypertension. 2. Hypothyroidism. 3. Gastroesophageal reflux disease. 4. Chronic kidney disease stage 3, status post renal transplant. 5. Status post ventral hernia repair yesterday. PLAN: 1. I will resume home medications. Previously had ordered metoprolol 5 mg IV q.6h. I will discontinue that. Recheck labs in a.m. Clinically, the patient is in stable condition. Treatment discussed with the patient and the family. The patient is currently n.p.o. except that she can take her medications. 2. Continue to monitor the patient's blood pressure. Resume Synthroid and other medications. Blood pressure control is improving. Creatinine is stable at 1.7. Results discussed with the patient. Diet has been advanced to clear liquids. Plan Plan For more details regarding further plans, please refer to the orders. ERIC TRINH MD Sep 03, 2018 10:26
[2018-09-03 11:00] VITALS: BP 151/68
[2018-09-03] MEDS: HEPARIN for SUB-Q USE 5,000 UNIT/ML VIAL. SQ SCH ×2 (12:34→21:25)
--- NOTE | 2018-09-03 13:00 | NUR ---
Pt very drowsy and difficult to arouse. Called anesthesia to request to decrease the dose. Per MD turn off for 1 hour and then restart @ 8mL/hr.
--- NOTE | 2018-09-03 14:00 | NUR ---
SW following. Discussed with RN, RN advised pt is from home, no SW needs at this time. SW will continue to follow.
[2018-09-03 15:00] VITALS: BP 162/68
[2018-09-03 19:48] VITALS: BP 164/67
[2018-09-03] MEDS: GABAPENTIN 300 MG CAPSULE. PO SCH (21:16)
[2018-09-03] MEDS: CALCIUM CARBONATE 500 MG TAB.CHEW PO SCH (21:16)
[2018-09-03 23:16] VITALS: BP 168/74
[2018-09-04] VITALS (7 sets, daily range): BP systolic 154–192; BP diastolic 58–78
[2018-09-04] MEDS: NORMAL SALINE 35 ML, fentaNYL PF VIAL 250 MCG, ROPIVacaine 0.5% PF 10 ML in EPIDURAL 50 TV EPID PRN ×3 (01:06→12:54)
[2018-09-04] MEDS: IV 1/2 NORMAL SALINE 1,000 ML IV SCH ×3 (03:50→22:16)
[2018-09-04 06:13] LABS: BASO % 1 % (0-3); EOS # 0.1 x10^3/uL (0.0-0.7); EOS % 3 % (0-3); HEMATOCRIT 25.2 % (36.0-47.0); LYMPH # 1.1 x10^3/uL (1.0-4.8); LYMPH % 27 % (24-48); MEAN CORPUSCULAR HEMOGLOBIN 26 pg (25-35); MEAN CORPUSCULAR HGB CONC 32 g/dL (31-37); MEAN CORPUSCULAR VOLUME 81 fL (79-100); MONO # 0.3 x10^3/uL (0.0-1.1); MONO % 7 % (0-9); NEUT # 2.7 x10^3uL (1.8-7.7); NEUT % 62 % (31-73); PLATELET COUNT 174 x10^3/uL (140-400); RED BLOOD COUNT 3.11 x10^6/uL (3.50-5.40); RED CELL DISTRIBUTION WIDTH 17.6 % (11.5-14.5); WHITE BLOOD COUNT 4.3 x10^3/uL (4.0-11.0)
[2018-09-04] MEDS: LEVOTHYROXINE 100 MCG TABLET PO SCH (06:38)
[2018-09-04] MEDS: TERAZOSIN 1 MG CAPSULE. PO SCH ×2 (06:38→22:05)
[2018-09-04 06:40] LABS: CALCIUM 8.3 mg/dL (8.5-10.1); CREATININE 1.5 mg/dL (0.6-1.0); GFR 44.5; POTASSIUM 3.4 mmol/L (3.5-5.1)
[2018-09-04] MEDS ORDERED: CALCITRIOL 0.25 MCG CAPSULE. PO SCH (09:00)
[2018-09-04] MEDS: ALLOPURINOL 100 MG TABLET. PO SCH (09:28)
[2018-09-04] MEDS: predniSONE 5 MG TABLET PO SCH (09:28)
[2018-09-04] MEDS: TACROLIMUS 0.5 MG CAPSULE PO SCH ×2 (09:28→22:06)
[2018-09-04] MEDS: SERTRALINE 50 MG TABLET. PO SCH (09:29)
[2018-09-04] MEDS: MYCOPHENOLATE ACID 180 MG TABLET.DR. PO SCH ×2 (09:29→22:05)
[2018-09-04] MEDS: ASPIRIN CHEWABLE 81 MG TABLET. PO SCH (09:29)
[2018-09-04] MEDS: CHOLECALCIFEROL (VITAMIN D3) 1,000 UNIT TABLET PO SCH (09:29)
[2018-09-04] MEDS: LABETALOL HCL 100 MG TABLET. PO SCH ×2 (09:29→22:05)
[2018-09-04] MEDS: FAMOTIDINE 20 MG TABLET. PO SCH (09:29)
[2018-09-04] MEDS: HEPARIN for SUB-Q USE 5,000 UNIT/ML VIAL. SQ SCH ×2 (09:49→22:14)
--- NOTE | 2018-09-04 10:21 | PDOC ---
SURGICAL PROGRESS NOTE Subjective Post op day 3. Patient is doing well this morning. She states her pain is well controlled, and she has some slight discomfort in her abdomen near the surgical incision which is much less than the normal post op pain.. She reports that she is urinating well with no pain or dysuria. She has not yet had a bowel movement or passed gas. She reported some slight nausea overnight that has since dissipated. Due to the gastic sleeve she has nausea and vomiting normally prior to this surgery. The amount of fluid in the two drains has been decreasing each day.....about 115cc last 24 hours She states she has ambulated slightly from the bed to the bathroom but has not walked a significant amount. We will continue to monitor bowel function to determine when patient can progress from a liquid diet to soft and solid foods. Wound checked and no hernia is noted and there are no complications thus far. Vital Signs Vital Signs Date Time Temp Pulse Resp B/P (MAP) Pulse Ox O2 Delivery O2 Flow Rate FiO2 09/04/18 09:29 69 160/69 09/04/18 07:00 97.8 18 100 Room Air 97.8 I&O Intake and Output 09/04/18 07:00 Output Total 1340 ml Balance -1340 ml Output Urine Total 1225 ml Drainage Total 115 ml # Voids 1 Labs Laboratory Tests Test 09/03/18 06:47 09/04/18 06:00 09/04/18 06:05 White Blood Count 5.9 x10^3/uL (4.0-11.0) 4.3 x10^3/uL (4.0-11.0) Red Blood Count 3.38 x10^6/uL (3.50-5.40) 3.11 x10^6/uL (3.50-5.40) Hemoglobin 8.7 g/dL (12.0-15.5) 8.0 g/dL (12.0-15.5) Hematocrit 27.6 % (36.0-47.0) 25.2 % (36.0-47.0) Mean Corpuscular Volume 82 fL (79-100) 81 fL (79-100) Mean Corpuscular Hemoglobin 26 pg (25-35) 26 pg (25-35) Mean Corpuscular Hemoglobin Concent 31 g/dL (31-37) 32 g/dL (31-37) Red Cell Distribution Width 18.1 % (11.5-14.5) 17.6 % (11.5-14.5) Platelet Count 180 x10^3/uL (140-400) 174 x10^3/uL (140-400) Neutrophils (%) (Auto) 72 % (31-73) 62 % (31-73) Lymphocytes (%) (Auto) 20 % (24-48) 27 % (24-48) Monocytes (%) (Auto) 6 % (0-9) 7 % (0-9) Eosinophils (%) (Auto) 1 % (0-3) 3 % (0-3) Basophils (%) (Auto) 1 % (0-3) 1 % (0-3) Neutrophils # (Auto) 4.2 x10^3uL (1.8-7.7) 2.7 x10^3uL (1.8-7.7) Lymphocytes # (Auto) 1.2 x10^3/uL (1.0-4.8) 1.1 x10^3/uL (1.0-4.8) Monocytes # (Auto) 0.4 x10^3/uL (0.0-1.1) 0.3 x10^3/uL (0.0-1.1) Eosinophils # (Auto) 0.1 x10^3/uL (0.0-0.7) 0.1 x10^3/uL (0.0-0.7) Basophils # (Auto) 0.0 x10^3/uL (0.0-0.2) 0.0 x10^3/uL (0.0-0.2) Platelet Estimate Adequate (ADEQUATE) Poikilocytosis Present Anisocytosis Present Macrocytosis Present Ovalocytes Present RBC Morphology Bizarre Forms Present Sodium Level 138 mmol/L (136-145) 137 mmol/L (136-145) Potassium Level 3.5 mmol/L (3.5-5.1) 3.4 mmol/L (3.5-5.1) Chloride Level 103 mmol/L (98-107) 104 mmol/L (98-107) Carbon Dioxide Level 25 mmol/L (21-32) 24 mmol/L (21-32) Anion Gap 10 (6-14) 9 (6-14) Blood Urea Nitrogen 15 mg/dL (7-20) 11 mg/dL (7-20) Creatinine 1.7 mg/dL (0.6-1.0) 1.5 mg/dL (0.6-1.0) Estimated GFR (Cockcroft-Gault) 38.5 44.5 Glucose Level 90 mg/dL (70-99) 87 mg/dL (70-99) Calcium Level 8.3 mg/dL (8.5-10.1) 8.3 mg/dL (8.5-10.1) Laboratory Tests Test 09/04/18 06:00 09/04/18 06:05 White Blood Count 4.3 x10^3/uL (4.0-11.0) Red Blood Count 3.11 x10^6/uL (3.50-5.40) Hemoglobin 8.0 g/dL (12.0-15.5) Hematocrit 25.2 % (36.0-47.0) Mean Corpuscular Volume 81 fL (79-100) Mean Corpuscular Hemoglobin 26 pg (25-35) Mean Corpuscular Hemoglobin Concent 32 g/dL (31-37) Red Cell Distribution Width 17.6 % (11.5-14.5) Platelet Count 174 x10^3/uL (140-400) Neutrophils (%) (Auto) 62 % (31-73) Lymphocytes (%) (Auto) 27 % (24-48) Monocytes (%) (Auto) 7 % (0-9) Eosinophils (%) (Auto) 3 % (0-3) Basophils (%) (Auto) 1 % (0-3) Neutrophils # (Auto) 2.7 x10^3uL (1.8-7.7) Lymphocytes # (Auto) 1.1 x10^3/uL (1.0-4.8) Monocytes # (Auto) 0.3 x10^3/uL (0.0-1.1) Eosinophils # (Auto) 0.1 x10^3/uL (0.0-0.7) Basophils # (Auto) 0.0 x10^3/uL (0.0-0.2) Sodium Level 137 mmol/L (136-145) Potassium Level 3.4 mmol/L (3.5-5.1) Chloride Level 104 mmol/L (98-107) Carbon Dioxide Level 24 mmol/L (21-32) Anion Gap 9 (6-14) Blood Urea Nitrogen 11 mg/dL (7-20) Creatinine 1.5 mg/dL (0.6-1.0) Estimated GFR (Cockcroft-Gault) 44.5 Glucose Level 87 mg/dL (70-99) Calcium Level 8.3 mg/dL (8.5-10.1) MEENAKSHI RANDALL MD Sep 04, 2018 10:21
--- NOTE | 2018-09-04 11:12 | PDOC ---
PROGRESS NOTES Subjective Subjective feels better today Objective Objective Vital Signs Date Time Temp Pulse Resp B/P (MAP) Pulse Ox O2 Delivery O2 Flow Rate FiO2 09/04/18 09:29 69 160/69 09/04/18 07:00 97.8 18 100 Room Air 97.8 Intake and Output 09/04/18 07:00 Output Total 1340 ml Balance -1340 ml Output Urine Total 1225 ml Drainage Total 115 ml # Voids 1 Physical Exam Abdomen: Normal bowel sounds, Soft, Other (dressings and drains) Heart: Regular rate, Normal S1, Normal S2 General: Alert HEENT: Atraumatic Lungs: Clear to auscultation MUSCULOSKELETAL: No deformity Neck: Supple Neuro: Normal speech Psych/Mental Status: Mental status NL Skin: No rashes Assessment Assessment IMP:POD #2 1. Accelerated hypertension. 2. Hypothyroidism. 3. Gastroesophageal reflux disease. 4. Chronic kidney disease stage 3, status post renal transplant. 5. Status post ventral hernia repair yesterday. PLAN:Cr 1.5 down continue iv fluids. full liquid diet. spoke with dr tripp. pot 3.4 replace. Comment Review of Relevant I have reviewed the following items doris (where applicable) has been applied. Labs Laboratory Tests Test 09/04/18 06:00 09/04/18 06:05 White Blood Count 4.3 x10^3/uL (4.0-11.0) Red Blood Count 3.11 x10^6/uL (3.50-5.40) Hemoglobin 8.0 g/dL (12.0-15.5) Hematocrit 25.2 % (36.0-47.0) Mean Corpuscular Volume 81 fL (79-100) Mean Corpuscular Hemoglobin 26 pg (25-35) Mean Corpuscular Hemoglobin Concent 32 g/dL (31-37) Red Cell Distribution Width 17.6 % (11.5-14.5) Platelet Count 174 x10^3/uL (140-400) Neutrophils (%) (Auto) 62 % (31-73) Lymphocytes (%) (Auto) 27 % (24-48) Monocytes (%) (Auto) 7 % (0-9) Eosinophils (%) (Auto) 3 % (0-3) Basophils (%) (Auto) 1 % (0-3) Neutrophils # (Auto) 2.7 x10^3uL (1.8-7.7) Lymphocytes # (Auto) 1.1 x10^3/uL (1.0-4.8) Monocytes # (Auto) 0.3 x10^3/uL (0.0-1.1) Eosinophils # (Auto) 0.1 x10^3/uL (0.0-0.7) Basophils # (Auto) 0.0 x10^3/uL (0.0-0.2) Sodium Level 137 mmol/L (136-145) Potassium Level 3.4 mmol/L (3.5-5.1) Chloride Level 104 mmol/L (98-107) Carbon Dioxide Level 24 mmol/L (21-32) Anion Gap 9 (6-14) Blood Urea Nitrogen 11 mg/dL (7-20) Creatinine 1.5 mg/dL (0.6-1.0) Estimated GFR (Cockcroft-Gault) 44.5 Glucose Level 87 mg/dL (70-99) Calcium Level 8.3 mg/dL (8.5-10.1) Medications Current Medications Calcitriol (Rocaltrol) 0.5 mcg QSA@0900 PO ; Start 09/04/18 at 09:00; Status Cancel Sodium Chloride 35 ml/Fentanyl Citrate 250 mcg/ Ropivacaine 10 ml/ Epidural Dosage Infused (Pha) 50 ml @ 0 mls/hr CONT PRN EPID SEE PROTOCOL TABLE Last administered on 09/04/18at 06:45; Start 09/03/18 at 19:15 Vitals/I & O Vital Sign - Last 24 Hours 09/03/18 09/03/18 09/03/18 09/03/18 12:34 13:04 15:00 19:25 Temp 98.1 98.1 Pulse 69 Resp 16 B/P (MAP) 162/68 (99) Pulse Ox 100 O2 Delivery Room Air Room Air Room Air Room Air 09/03/18 09/03/18 09/03/18 09/03/18 19:48 19:55 21:14 23:16 Temp 98.2 98.2 98.2 98.2 Pulse 77 77 82 Resp 17 20 B/P (MAP) 164/67 (99) 164/67 168/74 (105) Pulse Ox 99 98 O2 Delivery Room Air Room Air Room Air 3/09/04/18 09/04/18 09/04/18 01:06 01:36 03:03 06:38 Temp 98.3 98.3 Pulse 72 70 Resp 18 B/P (MAP) 186/76 (112) 154/58 Pulse Ox 96 O2 Delivery Room Air Room Air Room Air 09/04/18 09/04/18 09/04/18 09/04/18 06:45 06:45 07:00 09:29 Temp 97.8 97.8 Pulse 70 69 69 Resp 18 B/P (MAP) 154/58 (90) 160/69 (99) 160/69 Pulse Ox 100 O2 Delivery Room Air Room Air Room Air Intake and Output 09/03/18 09/03/18 09/04/18 15:00 23:00 07:00 Output Total 500 ml 840 ml Balance -500 ml -840 ml LYLE RITCHIE MD Sep 04, 2018 11:12
[2018-09-04] MEDS ORDERED: POTASSIUM CHLORIDE 20 MEQ TABLET.ER. PO ONE (11:15)
[2018-09-04] MEDS ORDERED: hydrALAZINE 20 MG/ML VIAL. IVP PRN (21:30)
[2018-09-04] MEDS: LISINOPRIL 10 MG TABLET PO SCH (22:04)
[2018-09-04] MEDS: CALCIUM CARBONATE 500 MG TAB.CHEW PO SCH (22:05)
[2018-09-04] MEDS: GABAPENTIN 300 MG CAPSULE. PO SCH (22:05)
[2018-09-05] MEDS: NORMAL SALINE 35 ML, fentaNYL PF VIAL 250 MCG, ROPIVacaine 0.5% PF 10 ML in EPIDURAL 50 TV EPID PRN ×2 (00:53→06:43)
[2018-09-05 03:00] VITALS: BP 163/65
[2018-09-05] MEDS: IV 1/2 NORMAL SALINE 1,000 ML IV SCH (06:10)
[2018-09-05] MEDS: LEVOTHYROXINE 100 MCG TABLET PO SCH (06:11)
[2018-09-05] MEDS: TERAZOSIN 1 MG CAPSULE. PO SCH ×2 (06:11→21:02)
[2018-09-05 07:00] VITALS: BP 209/79
[2018-09-05 07:06] LABS: BASO % 1 % (0-3); EOS # 0.2 x10^3/uL (0.0-0.7); EOS % 4 % (0-3); LYMPH # 1.4 x10^3/uL (1.0-4.8); LYMPH % 31 % (24-48); MEAN CORPUSCULAR HEMOGLOBIN 25 pg (25-35); MEAN CORPUSCULAR HGB CONC 31 g/dL (31-37); MEAN CORPUSCULAR VOLUME 82 fL (79-100); MONO # 0.3 x10^3/uL (0.0-1.1); MONO % 7 % (0-9); NEUT # 2.6 x10^3uL (1.8-7.7); NEUT % 58 % (31-73); PLATELET COUNT 214 x10^3/uL (140-400); RED BLOOD COUNT 3.56 x10^6/uL (3.50-5.40); RED CELL DISTRIBUTION WIDTH 17.6 % (11.5-14.5); WHITE BLOOD COUNT 4.5 x10^3/uL (4.0-11.0)
[2018-09-05 07:22] LABS: CALCIUM 8.8 mg/dL (8.5-10.1); CREATININE 1.3 mg/dL (0.6-1.0); GFR 52.5; POTASSIUM 3.4 mmol/L (3.5-5.1)
--- NOTE | 2018-09-05 09:35 | PDOC ---
SURGICAL PROGRESS NOTE Subjective Post op day 4: Patient is doing well with minimal pain today. She appears to have less pain today than would be expected after surgery. She is having BM's and flatus.. The epidural was removed this morning. She denies any nausea today but states her throat is still sore, as would be expected from intubation during surgery. She states she has been ambulating yesterday and denies significant pain with ambulation. She had one elevated BP this morning of 209/79, but on repeat check the BP was 160/65. She denies any headache, vision changes, chest pain, or shortness of breath. The wound drains have about 70 ml total today. Murray hope to discharge in the am 09/06/2018. Dressing changed. and wound OK without complications Vital Signs Vital Signs Date Time Temp Pulse Resp B/P (MAP) Pulse Ox O2 Delivery O2 Flow Rate FiO2 09/05/18 07:13 20 Room Air 09/05/18 07:00 98.7 68 209/79 (122) 100 98.7 09/04/18 20:00 2.0 I&O Intake and Output 09/05/18 07:00 Intake Total 1025 ml Output Total 70 ml Balance 955 ml Intake Oral 1025 ml Drainage Total 70 ml # Voids 9 # Bowel Movements 1 Labs Laboratory Tests Test 09/04/18 06:00 09/04/18 06:05 09/05/18 06:50 White Blood Count 4.3 x10^3/uL (4.0-11.0) 4.5 x10^3/uL (4.0-11.0) Red Blood Count 3.11 x10^6/uL (3.50-5.40) 3.56 x10^6/uL (3.50-5.40) Hemoglobin 8.0 g/dL (12.0-15.5) 9.0 g/dL (12.0-15.5) Hematocrit 25.2 % (36.0-47.0) 29.0 % (36.0-47.0) Mean Corpuscular Volume 81 fL (79-100) 82 fL (79-100) Mean Corpuscular Hemoglobin 26 pg (25-35) 25 pg (25-35) Mean Corpuscular Hemoglobin Concent 32 g/dL (31-37) 31 g/dL (31-37) Red Cell Distribution Width 17.6 % (11.5-14.5) 17.6 % (11.5-14.5) Platelet Count 174 x10^3/uL (140-400) 214 x10^3/uL (140-400) Neutrophils (%) (Auto) 62 % (31-73) 58 % (31-73) Lymphocytes (%) (Auto) 27 % (24-48) 31 % (24-48) Monocytes (%) (Auto) 7 % (0-9) 7 % (0-9) Eosinophils (%) (Auto) 3 % (0-3) 4 % (0-3) Basophils (%) (Auto) 1 % (0-3) 1 % (0-3) Neutrophils # (Auto) 2.7 x10^3uL (1.8-7.7) 2.6 x10^3uL (1.8-7.7) Lymphocytes # (Auto) 1.1 x10^3/uL (1.0-4.8) 1.4 x10^3/uL (1.0-4.8) Monocytes # (Auto) 0.3 x10^3/uL (0.0-1.1) 0.3 x10^3/uL (0.0-1.1) Eosinophils # (Auto) 0.1 x10^3/uL (0.0-0.7) 0.2 x10^3/uL (0.0-0.7) Basophils # (Auto) 0.0 x10^3/uL (0.0-0.2) 0.0 x10^3/uL (0.0-0.2) Sodium Level 137 mmol/L (136-145) 137 mmol/L (136-145) Potassium Level 3.4 mmol/L (3.5-5.1) 3.4 mmol/L (3.5-5.1) Chloride Level 104 mmol/L (98-107) 102 mmol/L (98-107) Carbon Dioxide Level 24 mmol/L (21-32) 25 mmol/L (21-32) Anion Gap 9 (6-14) 10 (6-14) Blood Urea Nitrogen 11 mg/dL (7-20) 9 mg/dL (7-20) Creatinine 1.5 mg/dL (0.6-1.0) 1.3 mg/dL (0.6-1.0) Estimated GFR (Cockcroft-Gault) 44.5 52.5 Glucose Level 87 mg/dL (70-99) 83 mg/dL (70-99) Calcium Level 8.3 mg/dL (8.5-10.1) 8.8 mg/dL (8.5-10.1) Laboratory Tests Test 09/05/18 06:50 White Blood Count 4.5 x10^3/uL (4.0-11.0) Red Blood Count 3.56 x10^6/uL (3.50-5.40) Hemoglobin 9.0 g/dL (12.0-15.5) Hematocrit 29.0 % (36.0-47.0) Mean Corpuscular Volume 82 fL (79-100) Mean Corpuscular Hemoglobin 25 pg (25-35) Mean Corpuscular Hemoglobin Concent 31 g/dL (31-37) Red Cell Distribution Width 17.6 % (11.5-14.5) Platelet Count 214 x10^3/uL (140-400) Neutrophils (%) (Auto) 58 % (31-73) Lymphocytes (%) (Auto) 31 % (24-48) Monocytes (%) (Auto) 7 % (0-9) Eosinophils (%) (Auto) 4 % (0-3) Basophils (%) (Auto) 1 % (0-3) Neutrophils # (Auto) 2.6 x10^3uL (1.8-7.7) Lymphocytes # (Auto) 1.4 x10^3/uL (1.0-4.8) Monocytes # (Auto) 0.3 x10^3/uL (0.0-1.1) Eosinophils # (Auto) 0.2 x10^3/uL (0.0-0.7) Basophils # (Auto) 0.0 x10^3/uL (0.0-0.2) Sodium Level 137 mmol/L (136-145) Potassium Level 3.4 mmol/L (3.5-5.1) Chloride Level 102 mmol/L (98-107) Carbon Dioxide Level 25 mmol/L (21-32) Anion Gap 10 (6-14) Blood Urea Nitrogen 9 mg/dL (7-20) Creatinine 1.3 mg/dL (0.6-1.0) Estimated GFR (Cockcroft-Gault) 52.5 Glucose Level 83 mg/dL (70-99) Calcium Level 8.8 mg/dL (8.5-10.1) MEENAKSHI RANDALL MD Sep 05, 2018 09:35
[2018-09-05] MEDS: TACROLIMUS 0.5 MG CAPSULE PO SCH ×2 (09:42→21:02)
[2018-09-05] MEDS: MYCOPHENOLATE ACID 180 MG TABLET.DR. PO SCH ×2 (09:42→21:03)
[2018-09-05] MEDS: CHOLECALCIFEROL (VITAMIN D3) 1,000 UNIT TABLET PO SCH (09:42)
[2018-09-05] MEDS: LISINOPRIL 10 MG TABLET PO SCH ×2 (09:43→21:04)
[2018-09-05] MEDS: SERTRALINE 50 MG TABLET. PO SCH (09:43)
[2018-09-05] MEDS: predniSONE 5 MG TABLET PO SCH (09:43)
[2018-09-05] MEDS: ALLOPURINOL 100 MG TABLET. PO SCH (09:43)
[2018-09-05] MEDS: ASPIRIN CHEWABLE 81 MG TABLET. PO SCH (09:44)
[2018-09-05] MEDS: FAMOTIDINE 20 MG TABLET. PO SCH (09:44)
[2018-09-05] MEDS: LABETALOL HCL 100 MG TABLET. PO SCH ×2 (09:44→21:05)
[2018-09-05] MEDS: HEPARIN for SUB-Q USE 5,000 UNIT/ML VIAL. SQ SCH ×2 (09:54→21:06)
[2018-09-05 11:00] VITALS: BP 134/80
--- NOTE | 2018-09-05 12:55 | PDOC ---
PROGRESS NOTES Subjective Subjective Bp high last night 190/90,much better today Objective Objective Vital Signs Date Time Temp Pulse Resp B/P (MAP) Pulse Ox O2 Delivery O2 Flow Rate FiO2 09/05/18 11:00 98.4 72 17 134/80 (98) 99 Room Air 98.4 09/04/18 20:00 2.0 Intake and Output 09/05/18 07:00 Intake Total 1025 ml Output Total 70 ml Balance 955 ml Intake Oral 1025 ml Drainage Total 70 ml # Voids 9 # Bowel Movements 1 Physical Exam Abdomen: Normal bowel sounds, Soft, Other (dressings and drains) Heart: Regular rate, Normal S1, Normal S2 General: Alert HEENT: Atraumatic Lungs: Clear to auscultation MUSCULOSKELETAL: No deformity Neck: Supple Neuro: Normal speech Psych/Mental Status: Mental status NL Skin: No rashes Assessment Assessment IMP:POD #3 1. Accelerated hypertension. 2. Hypothyroidism. 3. Gastroesophageal reflux disease. 4. Chronic kidney disease stage 3, status post renal transplant. 5. Status post ventral hernia repair yesterday. PLAN:started on home bp meds.BP normal today Cr 1.3 down back to base line continue iv fluids. full liquid diet. pot 3.4 replace. ?home tomorrow Comment Review of Relevant I have reviewed the following items doris (where applicable) has been applied. Labs Laboratory Tests Test 09/05/18 06:50 White Blood Count 4.5 x10^3/uL (4.0-11.0) Red Blood Count 3.56 x10^6/uL (3.50-5.40) Hemoglobin 9.0 g/dL (12.0-15.5) Hematocrit 29.0 % (36.0-47.0) Mean Corpuscular Volume 82 fL (79-100) Mean Corpuscular Hemoglobin 25 pg (25-35) Mean Corpuscular Hemoglobin Concent 31 g/dL (31-37) Red Cell Distribution Width 17.6 % (11.5-14.5) Platelet Count 214 x10^3/uL (140-400) Neutrophils (%) (Auto) 58 % (31-73) Lymphocytes (%) (Auto) 31 % (24-48) Monocytes (%) (Auto) 7 % (0-9) Eosinophils (%) (Auto) 4 % (0-3) Basophils (%) (Auto) 1 % (0-3) Neutrophils # (Auto) 2.6 x10^3uL (1.8-7.7) Lymphocytes # (Auto) 1.4 x10^3/uL (1.0-4.8) Monocytes # (Auto) 0.3 x10^3/uL (0.0-1.1) Eosinophils # (Auto) 0.2 x10^3/uL (0.0-0.7) Basophils # (Auto) 0.0 x10^3/uL (0.0-0.2) Sodium Level 137 mmol/L (136-145) Potassium Level 3.4 mmol/L (3.5-5.1) Chloride Level 102 mmol/L (98-107) Carbon Dioxide Level 25 mmol/L (21-32) Anion Gap 10 (6-14) Blood Urea Nitrogen 9 mg/dL (7-20) Creatinine 1.3 mg/dL (0.6-1.0) Estimated GFR (Cockcroft-Gault) 52.5 Glucose Level 83 mg/dL (70-99) Calcium Level 8.8 mg/dL (8.5-10.1) Medications Current Medications Hydralazine HCl (Apresoline Inj) 10 mg PRN Q4HRS PRN IVP ELEVATED BP, SEE COMMENTS; Start 09/04/18 at 21:30; Stop 09/04/18 at 21:34; Status DC Labetalol HCl (Normodyne Iv Push) 10 mg PRN Q6HRS PRN IVP HYPERTENSION, SEE COMMENTS; Start 09/04/18 at 21:45 Labetalol HCl (Trandate) 100 mg BID PO Last administered on 09/05/18at 09:44; Start 09/04/18 at 21:30 Lisinopril (Prinivil) 10 mg BID PO Last administered on 09/05/18at 09:43; Start 09/04/18 at 21:30 Tramadol HCl (Ultram) 50 mg PRN Q6HRS PRN PO PAIN; Start 09/05/18 at 11:15 Vitals/I & O Vital Sign - Last 24 Hours 09/04/18 09/04/18 09/04/18 09/04/18 12:54 15:00 19:00 20:00 Temp 98.0 97.9 98.0 97.9 Pulse 71 65 Resp 18 18 B/P (MAP) 174/70 (104) 187/78 (114) Pulse Ox 100 100 O2 Delivery Room Air Room Air Room Air Room Air O2 Flow Rate 2.0 09/04/18 09/04/18 09/04/18 09/04/18 22:04 22:05 22:05 23:00 Temp 97.7 97.7 Pulse 65 65 65 79 Resp 18 B/P (MAP) 187/78 187/78 187/78 189/75 (113) Pulse Ox 100 O2 Delivery Room Air 09/05/18 09/05/18 09/05/18 09/05/18 00:53 01:23 03:00 06:11 Temp 97.5 97.5 Pulse 68 68 Resp 16 B/P (MAP) 163/65 (97) 163/65 Pulse Ox 100 100 97 O2 Delivery Room Air Room Air 09/05/18 09/05/18 09/05/18 09/05/18 06:43 07:00 07:13 09:43 Temp 98.7 98.7 Pulse 68 68 Resp 18 20 B/P (MAP) 209/79 (122) 209/79 Pulse Ox 97 100 O2 Delivery Room Air Room Air Room Air 09/05/18 09/05/18 09:44 11:00 Temp 98.4 98.4 Pulse 68 72 Resp 17 B/P (MAP) 209/79 134/80 (98) Pulse Ox 99 O2 Delivery Room Air Intake and Output 09/04/18 09/04/18 09/05/18 15:00 23:00 07:00 Intake Total 375 ml 650 ml Output Total 70 ml Balance 375 ml 580 ml LYLE RITCHIE MD Sep 05, 2018 12:55
[2018-09-05] MEDS ORDERED: POTASSIUM CHLORIDE 20 MEQ TABLET.ER. PO ONE (14:00)
[2018-09-05 15:00] VITALS: BP 187/81
[2018-09-05 19:15] VITALS: BP 163/81
[2018-09-05] MEDS ORDERED: IV 1/2 NORMAL SALINE 1,000 ML IV SCH (19:45)
[2018-09-05] MEDS ORDERED: MAG HYDROX/ALUMINUM HYD/SIMETH 30 ML ORAL.SUSP PO PRN (21:00)
[2018-09-05] MEDS: GABAPENTIN 300 MG CAPSULE. PO SCH (21:03)
[2018-09-05] MEDS: CALCIUM CARBONATE 500 MG TAB.CHEW PO SCH (21:04)
[2018-09-05 23:42] VITALS: BP 173/89
[2018-09-06] MEDS: traMADol 50 MG TABLET PO PRN ×2 (00:23→06:43)
[2018-09-06] MEDS: IV 1/2 NORMAL SALINE 1,000 ML IV SCH (00:23)
[2018-09-06 02:57] VITALS: BP 157/82
[2018-09-06] MEDS: LEVOTHYROXINE 100 MCG TABLET PO SCH (06:02)
[2018-09-06] MEDS: TERAZOSIN 1 MG CAPSULE. PO SCH (06:03)
[2018-09-06] MEDS: LABETALOL 20 MG/4 ML DISP.SYRIN. IVP PRN ×2 (06:43→12:17)
[2018-09-06 07:00] VITALS: BP 195/79
[2018-09-06] MEDS: SERTRALINE 50 MG TABLET. PO SCH (08:14)
[2018-09-06] MEDS: ALLOPURINOL 100 MG TABLET. PO SCH (08:14)
[2018-09-06] MEDS: FAMOTIDINE 20 MG TABLET. PO SCH (08:14)
[2018-09-06] MEDS: ASPIRIN CHEWABLE 81 MG TABLET. PO SCH (08:15)
[2018-09-06] MEDS: TACROLIMUS 0.5 MG CAPSULE PO SCH (08:15)
[2018-09-06] MEDS: CHOLECALCIFEROL (VITAMIN D3) 1,000 UNIT TABLET PO SCH (08:16)
[2018-09-06] MEDS: LABETALOL HCL 100 MG TABLET. PO SCH (08:17)
[2018-09-06] MEDS: predniSONE 5 MG TABLET PO SCH (08:17)
[2018-09-06] MEDS: LISINOPRIL 10 MG TABLET PO SCH (08:17)
[2018-09-06] MEDS: MYCOPHENOLATE ACID 180 MG TABLET.DR. PO SCH (08:18)
[2018-09-06] MEDS: HEPARIN for SUB-Q USE 5,000 UNIT/ML VIAL. SQ SCH (08:30)
[2018-09-06] MEDS ORDERED: hydrALAZINE 25 MG TABLET PO ONE (09:15)
[2018-09-06] MEDS ORDERED: POTASSIUM CHLORIDE 20 MEQ TABLET.ER. PO ONE (09:30)
[2018-09-06] MEDS ORDERED: hydrALAZINE 25 MG TABLET PO SCH (09:30)
--- NOTE | 2018-09-06 09:31 | PDOC ---
IM PROGRESS NOTES- Subjective Subjective No complaints of pain, dyspnea or dizziness. Objective Vitals Vital Signs Date Time Temp Pulse Resp B/P (MAP) Pulse Ox O2 Delivery O2 Flow Rate FiO2 09/06/18 08:17 65 195/79 09/06/18 07:00 98.1 16 95 Room Air 98.1 09/06/18 01:37 2.0 Input & Output Intake and Output 09/06/18 07:00 Intake Total 880 ml Output Total 8 ml Balance 872 ml Intake Oral 880 ml Drainage Total 8 ml # Voids 5 Physical Exam Physical Exam General appearance - alert,well appearing, and in no distress and oriented to person, place, and time Mental Status - alert, oriented to person, place, and time, affect appropriate to mood Head - normal Chest -decreased breath sounds at bases Heart - S1 and S2 normal Abdomen - soft, status post surgery. Dressing in place. Neurological - alert and oriented bowel sounds improving. Musculoskeletal - no muscular tenderness noted Extremities - no pedal edema Skin - warm and dry Labs Laboratory Tests Test 09/05/18 06:50 White Blood Count 4.5 x10^3/uL (4.0-11.0) Red Blood Count 3.56 x10^6/uL (3.50-5.40) Hemoglobin 9.0 g/dL (12.0-15.5) Hematocrit 29.0 % (36.0-47.0) Mean Corpuscular Volume 82 fL (79-100) Mean Corpuscular Hemoglobin 25 pg (25-35) Mean Corpuscular Hemoglobin Concent 31 g/dL (31-37) Red Cell Distribution Width 17.6 % (11.5-14.5) Platelet Count 214 x10^3/uL (140-400) Neutrophils (%) (Auto) 58 % (31-73) Lymphocytes (%) (Auto) 31 % (24-48) Monocytes (%) (Auto) 7 % (0-9) Eosinophils (%) (Auto) 4 % (0-3) Basophils (%) (Auto) 1 % (0-3) Neutrophils # (Auto) 2.6 x10^3uL (1.8-7.7) Lymphocytes # (Auto) 1.4 x10^3/uL (1.0-4.8) Monocytes # (Auto) 0.3 x10^3/uL (0.0-1.1) Eosinophils # (Auto) 0.2 x10^3/uL (0.0-0.7) Basophils # (Auto) 0.0 x10^3/uL (0.0-0.2) Sodium Level 137 mmol/L (136-145) Potassium Level 3.4 mmol/L (3.5-5.1) Chloride Level 102 mmol/L (98-107) Carbon Dioxide Level 25 mmol/L (21-32) Anion Gap 10 (6-14) Blood Urea Nitrogen 9 mg/dL (7-20) Creatinine 1.3 mg/dL (0.6-1.0) Estimated GFR (Cockcroft-Gault) 52.5 Glucose Level 83 mg/dL (70-99) Calcium Level 8.8 mg/dL (8.5-10.1) Meds Current Medications Al Hydroxide/Mg Hydroxide (Mylanta Plus Xs) 30 ml PRN Q2HR PRN PO HEARTBURN / GAS Last administered on 09/05/18at 21:41; Start 09/05/18 at 21:00 Hydralazine HCl (Apresoline) 25 mg 1X ONCE PO ; Start 09/06/18 at 09:15; Stop 09/06/18 at 09:16; Status UNV Hydralazine HCl (Apresoline) 25 mg TID PO ; Start 09/06/18 at 09:30 Potassium Chloride (Klor-Con) 40 meq 1X ONCE PO Last administered on at 17:29; Start 09/05/18 at 14:00; Stop 09/05/18 at 14:01; Status DC Potassium Chloride (Klor-Con) 40 meq 1X ONCE PO ; Start 09/06/18 at 09:30; Stop 09/06/18 at 09:31 Sodium Chloride 1,000 ml @ 50 mls/hr Q20H IV ; Start 09/05/18 at 19:45 Tramadol HCl (Ultram) 50 mg PRN Q6HRS PRN PO PAIN Last administered on at 06:43; Start 09/05/18 at 11:15 Assessment Assessment IMP:POD #3 1. Accelerated hypertension. 2. Hypothyroidism. 3. Gastroesophageal reflux disease. 4. Chronic kidney disease stage 3, status post renal transplant. 5. Status post ventral hernia repair yesterday. PLAN: Blood pressure is 195/79. Patient cannot take hydralazine, as it causes headaches, so I will start her on amlodipine 5 mg daily. She will check her blood pressure at home twice daily. She'll follow with the primary care physician in one week. Goal blood pressure is 130/80. This was all discussed with the patient. Stopping the IV fluids will also help her blood pressure. Creatinine has decreased to 1.3. Medically okay to discharge the patient home later today if stable. Plan Plan For more details regarding further plans, please refer to the orders. ERIC TRINH MD Sep 06, 2018 09:31
[2018-09-06] MEDS ORDERED: amLODIPine BESYLATE 5 MG TABLET PO SCH (10:00)
--- NOTE | 2018-09-06 10:43 | NUR ---
SW following. Discussed with RN, pt is from home. RN advised no SW needs, and anticipates possible discharge home today. SW will continue to follow.
[2018-09-06 11:00] VITALS: BP 174/71
[2018-09-06 11:10] LABS: BASO # 0.1 x10^3/uL (0.0-0.2); BASO % 1 % (0-3); EOS # 0.2 x10^3/uL (0.0-0.7); EOS % 5 % (0-3); HEMATOCRIT 27.4 % (36.0-47.0); HEMOGLOBIN 8.4 g/dL (12.0-15.5); LYMPH # 0.9 x10^3/uL (1.0-4.8); LYMPH % 18 % (24-48); MEAN CORPUSCULAR HEMOGLOBIN 25 pg (25-35); MEAN CORPUSCULAR HGB CONC 31 g/dL (31-37); MEAN CORPUSCULAR VOLUME 81 fL (79-100); MONO # 0.3 x10^3/uL (0.0-1.1); MONO % 6 % (0-9); NEUT # 3.2 x10^3uL (1.8-7.7); NEUT % 70 % (31-73); PLATELET COUNT 221 x10^3/uL (140-400); RED BLOOD COUNT 3.39 x10^6/uL (3.50-5.40); RED CELL DISTRIBUTION WIDTH 17.9 % (11.5-14.5); WHITE BLOOD COUNT 4.6 x10^3/uL (4.0-11.0)
[2018-09-06 11:28] LABS: ALBUMIN 2.6 g/dL (3.4-5.0); ALBUMIN/GLOBULIN RATIO 0.8 (1.0-1.7); CALCIUM 8.4 mg/dL (8.5-10.1); CREATININE 1.4 mg/dL (0.6-1.0); GFR 48.2; POTASSIUM 3.6 mmol/L (3.5-5.1); TOTAL BILIRUBIN 0.3 mg/dL (0.2-1.0); TOTAL PROTEIN 5.8 g/dL (6.4-8.2)
[2018-09-06 13:30] VITALS: BP 141/65
--- NOTE | 2018-09-06 14:02 | PDOC ---
SURGICAL PROGRESS NOTE Subjective POD#5 Copntinues to do well with normal GI function and is taking po without problems. Drainage down but will leave drain in another 3-4 days and if no drainage will remove as outpt. Lab OK and PB 149/65 now. Home today as wound without complication and instructions given and I showed anw wtshe the patient handle and empty the drainage bottles. Will see in office or hm visit in 3-5 days. She will resume pre op det and meds and follow with PCP in addition to me. Vital Signs Vital Signs Date Time Temp Pulse Resp B/P (MAP) Pulse Ox O2 Delivery O2 Flow Rate FiO2 09/06/18 12:17 62 174/71 09/06/18 11:00 97.9 16 100 Room Air 97.9 09/06/18 01:37 2.0 I&O Intake and Output 09/06/18 07:00 Intake Total 880 ml Output Total 8 ml Balance 872 ml Intake Oral 880 ml Drainage Total 8 ml # Voids 5 Labs Laboratory Tests Test 09/05/18 06:50 09/06/18 10:48 White Blood Count 4.5 x10^3/uL (4.0-11.0) 4.6 x10^3/uL (4.0-11.0) Red Blood Count 3.56 x10^6/uL (3.50-5.40) 3.39 x10^6/uL (3.50-5.40) Hemoglobin 9.0 g/dL (12.0-15.5) 8.4 g/dL (12.0-15.5) Hematocrit 29.0 % (36.0-47.0) 27.4 % (36.0-47.0) Mean Corpuscular Volume 82 fL (79-100) 81 fL (79-100) Mean Corpuscular Hemoglobin 25 pg (25-35) 25 pg (25-35) Mean Corpuscular Hemoglobin Concent 31 g/dL (31-37) 31 g/dL (31-37) Red Cell Distribution Width 17.6 % (11.5-14.5) 17.9 % (11.5-14.5) Platelet Count 214 x10^3/uL (140-400) 221 x10^3/uL (140-400) Neutrophils (%) (Auto) 58 % (31-73) 70 % (31-73) Lymphocytes (%) (Auto) 31 % (24-48) 18 % (24-48) Monocytes (%) (Auto) 7 % (0-9) 6 % (0-9) Eosinophils (%) (Auto) 4 % (0-3) 5 % (0-3) Basophils (%) (Auto) 1 % (0-3) 1 % (0-3) Neutrophils # (Auto) 2.6 x10^3uL (1.8-7.7) 3.2 x10^3uL (1.8-7.7) Lymphocytes # (Auto) 1.4 x10^3/uL (1.0-4.8) 0.9 x10^3/uL (1.0-4.8) Monocytes # (Auto) 0.3 x10^3/uL (0.0-1.1) 0.3 x10^3/uL (0.0-1.1) Eosinophils # (Auto) 0.2 x10^3/uL (0.0-0.7) 0.2 x10^3/uL (0.0-0.7) Basophils # (Auto) 0.0 x10^3/uL (0.0-0.2) 0.1 x10^3/uL (0.0-0.2) Sodium Level 137 mmol/L (136-145) 139 mmol/L (136-145) Potassium Level 3.4 mmol/L (3.5-5.1) 3.6 mmol/L (3.5-5.1) Chloride Level 102 mmol/L (98-107) 105 mmol/L (98-107) Carbon Dioxide Level 25 mmol/L (21-32) 24 mmol/L (21-32) Anion Gap 10 (6-14) 10 (6-14) Blood Urea Nitrogen 9 mg/dL (7-20) 6 mg/dL (7-20) Creatinine 1.3 mg/dL (0.6-1.0) 1.4 mg/dL (0.6-1.0) Estimated GFR (Cockcroft-Gault) 52.5 48.2 Glucose Level 83 mg/dL (70-99) 110 mg/dL (70-99) Calcium Level 8.8 mg/dL (8.5-10.1) 8.4 mg/dL (8.5-10.1) BUN/Creatinine Ratio 4 (6-20) Total Bilirubin 0.3 mg/dL (0.2-1.0) Aspartate Amino Transf (AST/SGOT) 12 U/L (15-37) Alanine Aminotransferase (ALT/SGPT) 11 U/L (14-59) Alkaline Phosphatase 29 U/L (46-116) Total Protein 5.8 g/dL (6.4-8.2) Albumin 2.6 g/dL (3.4-5.0) Albumin/Globulin Ratio 0.8 (1.0-1.7) Laboratory Tests Test 09/06/18 10:48 White Blood Count 4.6 x10^3/uL (4.0-11.0) Red Blood Count 3.39 x10^6/uL (3.50-5.40) Hemoglobin 8.4 g/dL (12.0-15.5) Hematocrit 27.4 % (36.0-47.0) Mean Corpuscular Volume 81 fL (79-100) Mean Corpuscular Hemoglobin 25 pg (25-35) Mean Corpuscular Hemoglobin Concent 31 g/dL (31-37) Red Cell Distribution Width 17.9 % (11.5-14.5) Platelet Count 221 x10^3/uL (140-400) Neutrophils (%) (Auto) 70 % (31-73) Lymphocytes (%) (Auto) 18 % (24-48) Monocytes (%) (Auto) 6 % (0-9) Eosinophils (%) (Auto) 5 % (0-3) Basophils (%) (Auto) 1 % (0-3) Neutrophils # (Auto) 3.2 x10^3uL (1.8-7.7) Lymphocytes # (Auto) 0.9 x10^3/uL (1.0-4.8) Monocytes # (Auto) 0.3 x10^3/uL (0.0-1.1) Eosinophils # (Auto) 0.2 x10^3/uL (0.0-0.7) Basophils # (Auto) 0.1 x10^3/uL (0.0-0.2) Sodium Level 139 mmol/L (136-145) Potassium Level 3.6 mmol/L (3.5-5.1) Chloride Level 105 mmol/L (98-107) Carbon Dioxide Level 24 mmol/L (21-32) Anion Gap 10 (6-14) Blood Urea Nitrogen 6 mg/dL (7-20) Creatinine 1.4 mg/dL (0.6-1.0) Estimated GFR (Cockcroft-Gault) 48.2 BUN/Creatinine Ratio 4 (6-20) Glucose Level 110 mg/dL (70-99) Calcium Level 8.4 mg/dL (8.5-10.1) Total Bilirubin 0.3 mg/dL (0.2-1.0) Aspartate Amino Transf (AST/SGOT) 12 U/L (15-37) Alanine Aminotransferase (ALT/SGPT) 11 U/L (14-59) Alkaline Phosphatase 29 U/L (46-116) Total Protein 5.8 g/dL (6.4-8.2) Albumin 2.6 g/dL (3.4-5.0) Albumin/Globulin Ratio 0.8 (1.0-1.7) MEENAKSHI RANDALL MD Sep 06, 2018 14:02
--- NOTE | 2018-09-06 14:13 | DISCH ---
DISCHARGE INSTRUCTIONS Condition on Discharge Condition on Discharge: Stable Activity After Discharge Activity Instructions for Disc: No restrictions Diet after Discharge Diet after Discharge: Renal Non-Dialysis, Regular Additional Diet Restrictions: none Wound Incision Care Wound/Incision Care: Change dressing Checks after Discharge Checks after discharge: Check blood press - daily Community/Resources/Services Services at Discharge: Home Health Care Services Contacting the after DC Call your doctor for: Fever greater than 100 Follow-Up Follow up with: call and make appointment to see me in 3-5 days. Treatment/Equipment after DC Adaptive Equipment Issued: None MEENAKSHI RANDALL MD Sep 06, 2018 14:13
[2018-09-06] MEDS ORDERED: AMLO5TAB10 PO (15:03)
--- NOTE | 2018-09-06 16:06 | NUR ---
Discharge instructions given with prescription. Answered questions and concerns. Verbalized understanding. Dr. Ng demonstrated how to change abdominal dressing yesterday. Supplies given by Dr. Ng.
--- NOTE | 2018-09-06 16:10 | NUR ---
Discharged home accompanied by Mother.
[2018-09-07] MEDS ORDERED: amLODIPine BESYLATE 5 MG TABLET PO SCH (09:00)
== END 2018-09-06 16:00 | disposition home or self-care (01) | DRG 354 ==
LOC: SURG 08:24 → OBSVTOIN 14:40 → 4 NORTH 14:40
PROVIDERS: ADMIT Specialist; ATTEND Specialist
PROC: 0KNK0ZZ Release Right Abdomen Muscle, Open Approach (ICD-10-PCS; 2018-09-01)
PROC: 0WUF0JZ Supplement Abdominal Wall with Synthetic Substitute, Open Approach (ICD-10-PCS; principal; 2018-09-01 09:30)
DX: K43.9 Ventral hernia without obstruction or gangrene (principal); Z94.0 Kidney transplant status; E03.9 Hypothyroidism, unspecified; N18.3 Chronic kidney disease, stage 3 (moderate); K21.9 Gastro-esophageal reflux disease without esophagitis; E66.9 Obesity, unspecified; I12.9 Hypertensive chronic kidney disease with stage 1 through stage 4 chronic kidney disease, or unspecified chronic kidney disease; Z90.710 Acquired absence of both cervix and uterus; Z98.84 Bariatric surgery status; Z88.0 Allergy status to penicillin; Z88.8 Allergy status to other drugs, medicaments and biological substances; Z82.49 Family history of ischemic heart disease and other diseases of the circulatory system; Z83.3 Family history of diabetes mellitus; Z79.899 Other long term (current) drug therapy; Z68.29 Body mass index [BMI] 29.0-29.9, adult
CPT/HCPCS: 36415; 80048; 80053; 85025; 85610; A7015; C1765; C1781; G0379; J1100; J1644; J2250; J2405; J2704; J2710; J2795; J3010; J3490; J7120; J7507; J7512